=== PATIENT | female | born 1945 | race Caucasian/White ===

== ENCOUNTER 2018-03-10 14:38 | Inpatient (IN) ==
[2018-03-10] MEDS ORDERED: PHENERGAN PO ONE (14:55)
[2018-03-10] MEDS ORDERED: NS 1,000 ML ONE (14:57)
[2018-03-10] MEDS ORDERED: NS 1,000 ML IV ONE ×2 (14:57→16:18)
[2018-03-10] MEDS ORDERED: SODIUM CHLORIDE 0.9% INJ ONE (15:08)
[2018-03-10] MEDS ORDERED: PHENERGAN IV ONE (15:08)
[2018-03-10] MEDS ORDERED: DUONEB (A & A) ONE (15:18)
[2018-03-10 15:20] LABS: BE -8.8 mmoll (-3.0-3.0); BLOOD TYPE ARTERIAL; HCO3-(ACT) 17.9 mmoll (20.0-26.0); PCO2(98.6) 46 mmHg (35-45); PO2(98.6) 71 mmHg (60-100); SAMPLE BLOOD; SAO2 91.6 % (95.0-100.0); THB 13.4 g/dL (11.5-17.4); pH(98.6) 7.22 (7.35-7.45)
[2018-03-10 15:25] LABS: ALLEN TEST YES; MODALITY CANNULA
[2018-03-10 15:38] LABS: ALBUMIN 4.1 g/dL (3.5-5.0); CALCIUM 10.4 mg/dL (8.8-10.2); CREATININE 1.8 mg/dL (0.5-0.9); POTASSIUM 3.4 mmol/L (3.5-5.1); TOTAL BILIRUBIN 0.3 mg/dL (0.20-1.00)
[2018-03-10 15:47] LABS: BASO# 0.03 X1000 (0.0-0.2); BASO% 0.3 % (0.0-0.8); EOS# 0.12 X1000 (0.0-0.7); EOS% 1.4 % (0.0-10.0); HEMATOCRIT 41.7 % (37.0-47.0); HEMOGLOBIN 13.2 g/dL (12.0-16.0); IMM GRAN# 0.03 X1000 (0.0-0.04); IMM GRAN% 0.3 % (0.0-0.5); LYMPH# 4.77 X1000 (1.2-3.4); LYMPH% 54.8 % (20.5-51.1); MCH 28.8 PG (27-31); MCHC 31.7 g/dL (33-37); MONO# 0.38 X1000 (0.11-0.59); MONO% 4.4 % (1.7-9.3); MPV 9.3 FL (7.4-10.4); NEUT# 3.37 X1000 (1.4-6.5); NEUT% 38.8 % (42.2-75.2); PLT 412 X1000 (130-400); RBC 4.58 XMIL (4.2-5.4); RDW 14.1 % (11.5-14.5)
[2018-03-10 16:08] LABS: INR 0.94
[2018-03-10 16:38] LABS: BILIRUBIN URINE NEGATIVE (NEGATIVE); BLOOD URINE NEGATIVE (NEGATIVE); CLARITY SL. CLOUDY (CLEAR); COLOR YELLOW; GLUCOSE URINE NEGATIVE (NEGATIVE); KETONE URINE NEGATIVE (NEGATIVE); LEUKOCYTES URINE 1+ (NEGATIVE); NITRITE URINE POSITIVE (NEGATIVE); PROTEIN URINE 2+(100 mg/dL) mg/dL (NEGATIVE); UROBILINOGEN URINE NORMAL
[2018-03-10 16:46] LABS: URINE BACTERIA 1+ /HFP; URINE CAST NONE SEEN /LPF; URINE EPITHELIAL CELLS >10 /HPF (<10); URINE YEAST NONE SEEN /HPF
[2018-03-10 16:47] LABS: URINE CRYSTAL NONE SEEN /HPF; URINE SOURCE CATH
--- NOTE | 2018-03-10 16:56 | PROVIDER DOCUMENTATION ---
This chart was entered by Gloria Ng Scribe, acting as scribe for Hernan Duncan MD. HPI-General Adult - General Chief Complaint: Flank Pain Stated Complaint: rt side pain, vomiting Time Seen by Provider: 03/10/18 14:52 Source: family (Daughter) Allergies/Adverse Reactions: Patient Allergies Allergy/AdvReac Type Severity Reaction Status Date / Time codeine Allergy Severe NAUSEA/VOMI Verified 03/10/18 15:48 TING metronidazole [From Flagyl] Allergy Severe ANAPHYLAXIS Verified 03/10/18 15:48 Metronidazole HCl * Allergy Severe ANAPHYLAXIS Verified 03/10/18 15:48 [From Flagyl] povidone-iodine Allergy Severe HIVES Verified 03/10/18 15:48 [From Betadine] soap * [From Betadine] Allergy Severe HIVES Verified 03/10/18 15:48 doxycycline Allergy Intermediate RASH Verified 03/10/18 15:48 morphine Allergy Mild NAUSEA/VOMI Verified 03/10/18 15:48 TING Beta-Blockers Allergy Unknown ITCHING Verified 03/10/18 15:48 (Beta-Adrenergic Bloc Calcium Channel Blocking Allergy Unknown SHORTNESS Verified 03/10/18 15:48 Agent Dilt OF BREATH [Calcium Channel Blocking Agents-David] Calcium Channel Blocking Allergy Unknown SHORTNESS Verified 03/10/18 15:48 Agent... * OF BREATH [Calcium Channel Blocking Agents-Phe] Calcium Channel Blocking Allergy Unknown SHORTNESS Verified 03/10/18 15:48 Agents-Dih OF BREATH Calcium Channel Allergy Unknown SHORTNESS Verified 03/10/18 15:48 Blocking-Diary... * OF BREATH [Calcium Channel Blocking-Diarylamin] nitrofurantoin Allergy RASH Verified 03/10/18 15:49 [From Macrobid] Sulfa (Sulfonamide Allergy NAUSEA/VOMI Verified 03/10/18 15:50 Antibiotics) TING sulfamethoxazole Allergy NAUSEA/VOMI Verified 03/10/18 15:51 [From Bactrim] TING trimethoprim [From Bactrim] Allergy NAUSEA/VOMI Verified 03/10/18 15:51 TING Home Medications: Home Medication List Medication Instructions Recorded Confirmed Last Taken Type Diazepam 5 mg PO DAILY 04/08/13 03/10/18 Unknown History Esomeprazole [Nexium] 40 mg PO DAILY 04/08/13 03/10/18 Unknown History Furosemide [Lasix] 40 mg PO DAILY 04/08/13 03/10/18 Unknown History Ipratropium/Albuterol INH 1 puff INH RTQ6H 04/08/13 03/10/18 Unknown History [Combivent Respimat Inhaler] Isosorbide Mononitrate E.r. [Imdur] 90 mg PO DAILY 04/08/13 03/10/18 Unknown History Promethazine [Phenergan] 25 mg PO Q6H PRN PRN #14 tablet 04/08/13 Unknown Rx Alprazolam [Xanax] 0.25 mg PO QHS 03/10/18 03/10/18 Unknown History Diphenhydramine [Benadryl] 25 mg PO BID 03/10/18 03/10/18 Unknown History Duloxetine [Cymbalta] 30 mg PO DAILY 03/10/18 03/10/18 Unknown History Insulin Regular, Human [Novolin R] 100 unit IJ DAILY 03/10/18 03/10/18 Unknown History Lisinopril 10 mg PO DAILY 03/10/18 03/10/18 Unknown History Methocarbamol [Robaxin] 500 mg PO BID 03/10/18 03/10/18 Unknown History Metoprolol [Lopressor] 25 mg PO DAILY 03/10/18 03/10/18 Unknown History Nitroglycerin [Nitrostat] 0.4 mg SL PRN PRN 03/10/18 03/10/18 Unknown History [place]-3 Fatty Acids [Fish Oil] 500 mg PO QHS 03/10/18 03/10/18 Unknown History Polyethylene Glycol 3350 [Miralax] 17 gm PO DAILY 03/10/18 03/10/18 Unknown History Verapamil HCl [Verapamil ER] 120 mg PO BID 03/10/18 03/10/18 Unknown History - History of Present Illness -Gen Adult Nature of Presenting Problems: 72 y/o female presents to the ED with syncopal episode just prior to arrival with vomiting times 1 yesterday and increasing today. Daughter states the patient was seen here yesterday and sent home, was doing better last night, vomiting and altered mental status today, and syncopal episode outside the building just prior to arrival. Location of Pain/Injury: reports: generalized Onset/Duration: reports: 2 days ago Timing: reports: still present Associated Symptoms: reports: nausea, syncope, vomiting. denies: diarrhea, fever/chills Similar Symptoms Previously?: Yes Recently seen or treated by another doctor?: Yes (here yesterday ) Review of Systems - Adult - REVIEW OF SYSTEMS - ADULT ROS:: ROS per family Constitutional: denies: chills, fever, night sweats Eyes: reports: no symptoms reported Ears, Nose, Mouth & Throat: reports: no symptoms reported Cardiovascular: reports: no symptoms reported Respiratory: reports: no symptoms reported Gastrointestinal: reports: nausea, vomiting. denies: diarrhea Genitourinary: reports: no symptoms reported Musculoskeletal: reports: no symptoms reported Integumentary: reports: no symptoms reported Neurological: reports: syncope. denies: seizure, tremors Psychiatric: reports: no symptoms reported Endocrine: reports: no symptoms reported Hematologic/Lymphatic: reports: no symptoms reported Allergic/Immunologic: reports: no symptoms reported All Other Systems: Reviewed and Negative Past History - Adult - PAST MEDICAL HISTORY-ADULT Review of Records: reports: Old Records Reviewed, Nursing Assessment Review, Medications Reviewed Major Childhood Illnesses: reports: denies history Cardiovascular: reports: angina, CAD, HTN Respiratory: reports: sleep apnea Genitourinary: reports: kidney disease Neurological: reports: CVA (01/06), other (norberto dz) Endocrine/Immune: reports: Diabetes Other Conditions: reports: cataract/glaucoma, other (meneres dz) - PRIOR SURGERIES/PROCEDURES Surgical/Procedure History: reports: appendectomy, cholecystectomy, bowel surgery, other (renal stent, cataract removal) - IMMUNIZATION STATUS Childhood Immunizations: See Nurse Assessment Flu Vaccine: See Nurse Assessment - FAMILY HISTORY Family History: reviewed, not pertinent - SOCIAL HISTORY Smoking: non-smoker Substance Use: none/never Alcohol Use Frequency: never Living Situation: family Physical Exam-General - PHYSICAL EXAM-ADULT Initial Vital Signs Reviewed: Yes - CONSTITUTIONAL General Appearance: obese - HEAD, EARS, NOSE, MOUTH & THROAT HENMT: normocephalic/atraumatic - NECK Neck: full range of motion, supple - SKIN Integumentary: normal color, warm/dry Progress - PLAN OF CARE/RESULTS Progress/Plan/Lab Results: Vital Signs - 8 hr 03/10/18 14:45 Temperature 96.7 F L Pulse Rate 109 H Respiratory Rate 16 O2 Sat by Pulse Oximetry 93 L Result Diagrams: 03/10/18 15:05 03/10/18 15:05 - EKG 1 Time of EKG reading by physician:: 14:48 EKG Read and Signed by:: Hernan Duncan EKG Interpretation (*Must complete 3 of following elements*): Abnormal (acute STEMI/STEMI, consider right ventricular involvement in acute inferior infarct) Rate: 112 Rhythm: sinus tachycardia Comments: inferior infarct possibly acute, anterior infarct - old 2 Time of EKG reading by physician:: 15:43 EKG Read and Signed by:: Hernan Duncan EKG Interpretation (*Must complete 3 of following elements*): Abnormal ( inferior infarct age undetermined, anterolateral infarct age undetermined) Rate: 101 Rhythm: sinus tachycardia w/premature atrial complexes - CONSULTS/PCP/HOSPITALIST Notification #1 *Consult/PCP/Hospitalist*: Asher Potter Time Discussed: 15:39 Reason/Comments: multiple system failure Consult Disposition: Will see in ED Departure - Departure Date of Disposition Decision: 03/10/18 Time of Disposition Decision: 16:54 DIAGNOSIS: CRF (chronic renal failure), IHD (ischemic heart disease), Dehydration, Hypotension Disposition: ADMITTED INPATIENT 09 Certified Medical Emergency: Emergent Condition: Poor Referrals and Follow-Ups: None,PCP [Primary Care Provider] - - Critical Care Note This patient required my direct & personal management of CC.: Yes Total Time (mins): 58 Critical Care Statement: This patient required my direct personal management to treat or rule out processes, the absence of which, could potentiallly result in sudden, clinically significant life or limb threatening deterioration. Attestation - Physician/ KATHRYN Attestation Patient care was provided by Advanced Practice Provider:: No The physician spent face to face time with patient:: Yes Advanced Practice Provider documentation review:: Supervising physician onsite and consulted in the evaluation and care of this patient. The physician did have a face to face encounter with the patient. This chart was documented by the indicated scribe, (Gloria Ng Scribe) and accurately reflects the services I performed and decisions made by me, Hernan Duncan MD, as attested by the provider's signature.
--- NOTE | 2018-03-10 17:04 | Diag Imaging Result Doc PS360 ---
EXAM: CT RENAL STONE SEARCH INDICATION: belly pain TECHNIQUE: This exam was performed using automated exposure control, adjustment of mA or kV according to patient size, and/or use of iterative reconstruction technique. COMPARISON: None. FINDINGS: There is evidence of a prior cholecystectomy. The liver, spleen, pancreas, and adrenal glands are essentially unremarkable. There are no renal or ureteral stones and there is no hydronephrosis. The kidneys are grossly unremarkable, otherwise. There is a Muniz catheter in the urinary bladder and the bladder is nondistended. The reproductive tract is grossly unremarkable as imaged. There is abundant stool in the colon and rectum suggesting possible constipation. The remainder of the GI tract is essentially unremarkable. No focal inflammatory changes, free abdominal gas, or free fluid is identified. There is aortoiliac atherosclerotic calcification. The bony structures are intact. IMPRESSION: Possible constipation. No definite acute pathology, otherwise. Electronically signed by Hussein Weber 03/10/2018 5:02 PM
[2018-03-10] MEDS: ZOSYN 3.375 GM in NS 50 ML IV SCH ×2 (17:10→23:20)
--- NOTE | 2018-03-10 17:20 | Diag Imaging Result Doc PS360 ---
EXAM: CHEST-1 VIEW INDICATION: positive sepsis TECHNIQUE: One view COMPARISON: 03/09/2018 FINDINGS: The lungs are grossly clear. There is no discrete pleural fluid collection or pneumothorax. The cardiomediastinal silhouette and central vasculature are grossly unremarkable. IMPRESSION: No evidence of acute pathology by plain radiograph. Electronically signed by Hussein Weber 03/10/2018 5:18 PM
[2018-03-10] MEDS ORDERED: TYLENOL PO PRN (18:22)
[2018-03-10] MEDS ORDERED: ZOFRAN IV PRN (18:22)
[2018-03-10] MEDS ORDERED: NS 1,000 ML IV SCH (18:22)
--- NOTE | 2018-03-10 19:54 | HISTORY AND PHYSICAL ---
PRIMARY CARE PHYSICIAN: Dr. Christianson. CHIEF COMPLAINT: Altered mental status, syncopal episode prior to arrival and vomiting. HISTORY OF PRESENTING ILLNESS: This is a 72-year-old female who presents to [facility] ER with complaints of altered mental status, daughter states as they were coming into the emergency room, she had a syncopal episode, had vomiting yesterday and today was also seen in the emergency room yesterday for the same complaints and was discharged home. Her workup in the emergency room on arrival showed a blood pressure of 112/57, currently it has dropped to 83/43, she saturating 93% on 3 L. Laboratory data was fairly unremarkable except she did have elevation in her plasma lactate at 6. She has underlying chronic kidney disease with a creatinine of 1.8 which is actually better than her previous baseline of 2 but she is being admitted for further evaluation and treatment. PAST MEDICAL HISTORY: Coronary artery disease, status post PCI, sleep apnea, asthma, diabetes type 2, right humeral fracture status post a fall, hypertension, chronic kidney disease, CVA and Meniere's. PAST SURGICAL HISTORY: Of a cholecystectomy, appendectomy, bowel surgery and a cataract removal. FAMILY HISTORY: Coronary artery disease. SOCIAL HISTORY: She currently lives with family. Denies any tobacco, alcohol or illicit drug use. ALLERGIES: To codeine, Flagyl, Betadine, doxycycline, morphine, beta blockers, calcium channel blockers, sulfa. HOME MEDICATIONS: We will obtain a current list and restart as appropriate, after reviewing will place an order for nursing to update and confirm home medications. LABORATORY DATA: Showed a white blood cell count of 8.70, hemoglobin 13.2, hematocrit 41.7, platelets 412,000, PT and INR of 13 and 0.94. ABG with a pH of 7.22, pCO2 of 46, PO2 71, bicarb 17.9, lactate was 6.60 on 2 L via nasal cannula, sodium 138, potassium 3.4, chloride 97, CO2 20, BUN of 36, creatinine 1.8, glucose 218. Cardiac enzyme was negative, plasma lactate of 6. She has a chest x-ray pending and a CT renal stone search pending. REVIEW OF SYSTEMS: Unable to obtain from patient due to her altered mental status but the daughter states she has had increased weakness, nausea, vomiting, and that she did have a syncopal episode prior to coming into the emergency room today. The daughter states that she has complained of some right lower quadrant abdominal pain and was recently been treated for a urinary tract infection. Her UA is pending at this time. PHYSICAL EXAMINATION: On arrival she had a temperature of 96.7 degrees, pulse 109, respirations 16, blood pressure 112/57, saturating 93% on 3 L. GENERAL: This is a 72-year-old female sitting up in the bed, pale in color, confusion noted. HEENT: Normocephalic and atraumatic. Normal ENT inspection. Oropharynx and nares are clear. Pupils are equal, round, reactive to light and accommodation. Extraocular movements are intact. NECK: Normal inspection, normal range of motion. LUNGS: Clear to auscultation but she had very shallow respiration and accessory muscle use was noted. O2 via nasal cannula currently in use. HEART: With regular rate and rhythm. No murmurs, rubs, or gallops. ABDOMEN: Soft, nontender, nondistended. Bowel sounds are present x4 quadrants. MUSCULOSKELETAL: Unable to assess at this time. NEUROLOGICAL: Unable to assess at this time. ASSESSMENT: 1. Altered mental status with metabolic encephalopathy. 2. Syncope. 3. Hypotension. Would like to give a diagnosis of sepsis cause it certainly appears that she is moving in that direction but I do not have all of her lab results back to support that cause I do not have a source of infection at this time because I have a UA pending and a CT of the renal and a chest x-ray pending at this time. PLAN: She is being admitted to the medical unit at [facility], placed on O2 per protocol, will do serial plasma lactate level, will review the CT renal stone search and the 1 view chest x-ray when those results come available, will do a carotid ultrasound and echocardiogram in the morning, place on a diabetic diet, have nursing again to update and confirm home medications, we are going give her another liter bolus of fluids and then place her on normal saline at 125 mL an hour, Zofran 4 mg IV q.4 p.r.n., Tylenol 650 p.o. p.r.n., recheck a CBC, BMP in the a.m. Dictated by NONI Gandhi for Randy Potter MD cc: NONI Gandhi MD
--- NOTE | 2018-03-10 20:05 | HISTORY AND PHYSICAL ---
ADDENDUM: The patient was seen by me personally and I fully agree with the assessment and plan of my nurse practitioner Lisette Pompa. After seeing the patient [id number], I believe she has sepsis with metabolic acidosis and the likely source is urinary tract. She does have 10 to 20 WBCs per high-power field on urinalysis and therefore urine culture along with blood cultures have been obtained. She has been started on Zosyn intravenously, which will be continued. She has history of coronary artery disease, chronic kidney disease at stage 3 with baseline creatinine levels of about 1.7, type 2 diabetes mellitus and COPD along with hypertension. Her blood pressure has been running low because of sepsis and therefore, I have discontinued/held all her blood pressure lowering medications including lisinopril, isosorbide mononitrate, metoprolol and nitroglycerin patch. She has also been taking verapamil, which will be held as well. She has a history of stage 3 chronic kidney disease and her creatinine levels are near baseline but I am going to hold her furosemide for now and give her some fluid resuscitation because of her low blood pressure. I discussed the case in detail with her daughter who is very well informed about her mother's condition. Further recommendations will be given as per outcome of these measures. cc: Randy Potter MD
[2018-03-10] MEDS ORDERED: CALMOSEPTINE OINTMENT TOP PRN (20:48)
[2018-03-10] MEDS: DUONEB (A & A) INH SCH (22:05)
[2018-03-10 22:53] LABS: BASO# 0.01 X1000 (0.0-0.2); BASO% 0.1 % (0.0-0.8); EOS# 0.01 X1000 (0.0-0.7); EOS% 0.1 % (0.0-10.0); HEMATOCRIT 41.5 % (37.0-47.0); HEMOGLOBIN 12.8 g/dL (12.0-16.0); IMM GRAN# 0.05 X1000 (0.0-0.04); IMM GRAN% 0.3 % (0.0-0.5); LYMPH# 0.64 X1000 (1.2-3.4); LYMPH% 3.4 % (20.5-51.1); MCH 28.6 PG (27-31); MCHC 30.8 g/dL (33-37); MCV 92.6 FL (81-99); MONO# 0.92 X1000 (0.11-0.59); MONO% 4.9 % (1.7-9.3); MPV 9.1 FL (7.4-10.4); NEUT# 17.07 X1000 (1.4-6.5); NEUT% 91.2 % (42.2-75.2); PLT 271 X1000 (130-400); RBC 4.48 XMIL (4.2-5.4)
[2018-03-10 22:56] LABS: OCCULT BLOOD 1 POSITIVE (NEGATIVE)
[2018-03-10 23:35] LABS: BANDS 7 % (0-1); EOS 1 % (1-10); LYMPHS 4 % (21-51); MONO 5 % (1-9); SEGS 80 % (42-75)
[2018-03-11] MEDS ORDERED: BENADRYL IV ONE (02:39)
[2018-03-11] MEDS ORDERED: SODIUM CHLORIDE 0.9% INJ PRN (02:39)
[2018-03-11] MEDS: DUONEB (A & A) INH SCH ×2 (03:30→10:43)
[2018-03-11] MEDS: PHENERGAN IV PRN ×2 (03:43→19:30)
[2018-03-11] MEDS: NS 1,000 ML IV SCH ×4 (03:53→20:26)
[2018-03-11] MEDS: ZOSYN 3.375 GM in NS 50 ML IV SCH (04:05)
[2018-03-11 05:51] LABS: BE -5.1 mmoll (-3.0-3.0); BLOOD TYPE ARTERIAL; HCO3-(ACT) 20.8 mmoll (20.0-26.0); METHB 1.3 % (0.0-1.5); O2(CT) 16.2 mL/dL (15.0-23.0); O2HB 91.8 % (95.0-99.0); PCO2(98.6) 29 mmHg (35-45); PO2(98.6) 72 mmHg (60-100); SAMPLE BLOOD; SAO2 93.6 % (95.0-100.0); THB 12.5 g/dL (11.5-17.4); pH(98.6) 7.41 (7.35-7.45)
[2018-03-11 05:53] LABS: ALLEN TEST YES; MODALITY CANNULA
[2018-03-11] MEDS: HUMALOG DOSE (PARKWAY) SUBQ SCH ×4 (06:36→21:46)
[2018-03-11] MEDS ORDERED: HUMALOG (PARKWAY) SUBQ SCH (07:00)
[2018-03-11 07:53] LABS: CALCIUM 8.9 mg/dL (8.8-10.2); CREATININE 1.9 mg/dL (0.5-0.9); POTASSIUM 4.3 mmol/L (3.5-5.1)
[2018-03-11 08:43] LABS: BASO# 0.03 X1000 (0.0-0.2); BASO% 0.1 % (0.0-0.8); EOS# 0.01 X1000 (0.0-0.7); HEMATOCRIT 37.6 % (37.0-47.0); HEMOGLOBIN 12.7 g/dL (12.0-16.0); IMM GRAN# 0.22 X1000 (0.0-0.04); IMM GRAN% 0.8 % (0.0-0.5); LYMPH# 1.27 X1000 (1.2-3.4); LYMPH% 4.5 % (20.5-51.1); MCH 29.5 PG (27-31); MCHC 33.8 g/dL (33-37); MCV 87.2 FL (81-99); MONO# 1.07 X1000 (0.11-0.59); MONO% 3.8 % (1.7-9.3); MPV 9.1 FL (7.4-10.4); NEUT# 25.44 X1000 (1.4-6.5); NEUT% 90.8 % (42.2-75.2); PLT 263 X1000 (130-400); RBC 4.31 XMIL (4.2-5.4); RDW 13.9 % (11.5-14.5); WBC 28.04 X1000 (4.8-10.8)
--- NOTE | 2018-03-11 08:47 | PROGRESS NOTE ---
DATE: 03/11/2018 SUBJECTIVE: The patient is kind of having fatigue and is not able to communicate properly. She has her daughter at the bedside, who is giving me most of the history. Daughter complains that the patient had an episode of bloody diarrhea last night and since then, she is having bright red blood per rectum since then with the last episode at about 6:30 a.m. this morning. OBJECTIVE: Vital Signs: Temperature 97.7 degrees, pulse 108 per minute, respiratory rate 18 per minute, blood pressure 162/66, pulse oximetry 100% on 3 L of oxygen via nasal cannula. General: The patient is awake but appears to be somewhat disoriented. Cardiovascular System: First and second heart sounds are audible with regular tachycardia. Respiratory System: Bilateral lung air entry is moderately decreased but there are no rales or rhonchi present on auscultation. Gastrointestinal System: Abdomen is soft and nondistended. It is nontender on palpation and normal bowel sounds are present. Diagnostic Data: CBC from last night showed WBC count of 18.70, hemoglobin 12.8, and hematocrit 41.5, with a platelet count of 271,000. CBC this morning is pending at the time of this dictation. Chemistry done this morning shows a BUN of 41 and creatinine 1.9, with glucose level of 285. In comparison, her BUN and creatinine were 36 and 1.8 respectively yesterday. IMPRESSION: 1. Rectal bleeding with the possibility of colitis. 2. Metabolic acidosis and sepsis with urinary tract infection. 3. Acute kidney injury on stage 3 chronic kidney disease with baseline creatinine levels of approximately 1.7. 4. Type 2 diabetes mellitus. 5. Coronary artery disease. 6. Chronic obstructive pulmonary disease. 7. Hypertension. PLAN: The patient will continue to have fluid resuscitation and continue with Zosyn intravenously. Although it appears a lower GI bleed, I am going to switch her esomeprazole to IV pantoprazole 40 mg q.12 hours. Would also obtain a GI consultation and transfer her to [facility] for multi-speciality care. We will continue with routine care of type 2 diabetes and coronary artery disease, along with COPD and hypertension. I have therefore restarted her nitroglycerin, metoprolol, lisinopril, and Imdur. I have kept her on a full liquid diet, which will be continued. Further recommendations will be given as per hospital course. cc: Randy Potter MD
[2018-03-11] MEDS ORDERED: CYMBALTA PO SCH ×2 (09:00→21:00)
[2018-03-11] MEDS ORDERED: IMDUR PO SCH (09:00)
[2018-03-11] MEDS ORDERED: NEXIUM PO SCH (09:00)
[2018-03-11 09:52] LABS: BANDS 6 % (0-1); LYMPHS 5 % (21-51); MONO 2 % (1-9); SEGS 87 % (42-75)
[2018-03-11] MEDS: MIRALAX PO SCH (10:45)
[2018-03-11] MEDS: PRINIVIL PO SCH (10:59)
[2018-03-11] MEDS: PROTONIX IV SCH ×2 (10:59→21:28)
[2018-03-11] MEDS: SODIUM CHLORIDE 0.9% INJ SCH ×2 (10:59→21:31)
[2018-03-11] MEDS: LOPRESSOR PO SCH (11:00)
[2018-03-11] MEDS: NITROGLYCERIN 0.1MG/HR PATCH TD SCH (11:00)
--- NOTE | 2018-03-11 13:25 | Extremity Venous Study ---
EXAM: Carotid Ultrasound HISTORY: Syncope TECHNIQUE: Carotid Doppler ultrasound COMPARISON: None. FINDINGS: Right: There is normal flow in the proximal common carotid artery. There is a moderate amount of calcified plaque distally which extends into the bulb. The peak systolic velocity in the proximal internal carotid artery is 326 cm/s. The ICA/CCA ratio is 4.2. There is antegrade flow in vertebral artery. Left: There is normal flow in the common carotid artery with a small amount of plaque distally extending into the bulb. The peak systolic velocity in the internal carotid artery is 67 cm/s. The ICA/CC ratio 0.9. There is antegrade flow. IMPRESSION: 1.Critical stenosis within the proximal right internal carotid artery of between 80 and 99% 2.Mild stenosis in the proximal left internal carotid artery of less than 40% Electronically signed by Ray Avelar 03/11/2018 1:23 PM
--- NOTE | 2018-03-11 13:50 | EKG Report ---
Test Performed on : 03/10/2018 3:43:04 PM Test Reason : ER Blood Pressure : / mmHG Vent. Rate : 101 BPM Atrial Rate : 101 BPM P-R Int : 172 ms QRS Dur : 104 ms QT Int : 382 ms P-R-T Axes : 044 016 -74 degrees QTc Int : 495 ms Sinus tachycardia. with premature atrial complexes. Inferior infarct (cited on or before 09-MAR-2018) Anterolateral infarct (cited on or before 09-MAR-2018) Abnormal ECG When compared with ECG of 10-MAR-2018 14:48, (Unconfirmed) Serial changes of evolving Anterior infarct present Serial changes of evolving Anterolateral infarct present Serial changes of evolving Inferior infarct present Unconfirmed Result
--- NOTE | 2018-03-11 13:50 | EKG Report ---
Test Performed on : 03/10/2018 2:48:56 PM Test Reason : ER Blood Pressure : / mmHG Vent. Rate : 112 BPM Atrial Rate : 112 BPM P-R Int : 144 ms QRS Dur : 092 ms QT Int : 366 ms P-R-T Axes : 022 008 055 degrees QTc Int : 499 ms Sinus tachycardia. with premature supraventricular complexes. Inferior infarct (cited on or before 09-MAR-2018) Anterior infarct (cited on or before 09-MAR-2018) ACUTE OK / STEMI Consider right ventricular involvement in acute inferior infarct Abnormal ECG When compared with ECG of 10-MAR-2018 14:48, (Unconfirmed) premature supraventricular complexes. are now present Unconfirmed Result
--- NOTE | 2018-03-11 13:52 | EKG Report ---
Test Performed on : 03/10/2018 2:46:46 PM Test Reason : ER Blood Pressure : / mmHG Vent. Rate : 119 BPM Atrial Rate : 119 BPM P-R Int : 150 ms QRS Dur : 088 ms QT Int : 384 ms P-R-T Axes : 047 008 057 degrees QTc Int : 540 ms Sinus tachycardia. with occasional and consecutive premature ventricular complexes. and fusion comple xes Inferior infarct (cited on or before 09-MAR-2018) Anterior infarct (cited on or before 09-MAR-2018) Prolonged QT ACUTE NM / STEMI Consider right ventricular involvement in acute inferior infarct Abnormal ECG When compared with ECG of 09-MAR-2018 12:32, (Unconfirmed) fusion complexes are now present premature ventricular complexes. are now present Vent. rate has increased BY 40 BPM Unconfirmed Result
--- NOTE | 2018-03-11 14:01 | ECHO REPORT ---
ORDER DATE: 03/11/2018 2D ECHOCARDIOGRAM: FINDINGS: 1. Technically difficult study. Poor acoustic window. Measurements cannot be accurately commented on. 2. Aortic valve leaflets appear mildly sclerotic, not well-visualized. 3. Pulmonic valve not well-visualized. 4. Mitral valve is normal. Tricuspid valve is normal. 5. By Doppler studies, there is no aortic stenosis or regurgitation. 6. There is mild mitral regurgitation. 7. Mild tricuspid regurgitation. Peak velocity across the tricuspid valve was 2.6 m/sec. Pulmonary systolic pressure of 38 mmHg. 8. Definity was used to assess left ventricular systolic function. Normal left ventricular cavity size. Estimated ejection fraction of 40%. However, with Optison, still cannot comment on the systolic function accurately. There appears to be some anteroseptal hypokinesis as well. Would recommend MUGA scan for accurately assessing systolic function. 9. There is no pericardial effusion. cc: MD Lisette Sharif CRNP Adnan A. Seljuki, MD
[2018-03-11] MEDS ORDERED: MERREM 1 GM in NS 50 ML IV SCH (16:38)
[2018-03-11] MEDS: NITROGLYCERIN SL PRN ×3 (20:17→21:21)
[2018-03-11] MEDS: ZYVOX 600 MG/D5W 600 MG/300 ML IVPB IV SCH (20:44)
[2018-03-11] MEDS: IMDUR PO SCH (21:29)
[2018-03-11] MEDS: XANAX PO SCH (21:30)
[2018-03-11] MEDS: AZACTAM 1 GM in NS 50 ML IV SCH (23:24)
[2018-03-12] MEDS: NITROGLYCERIN SL PRN ×2 (05:03→06:03)
--- NOTE | 2018-03-12 06:01 | INFECTIOUS DISEASE CONSULT REP ---
DATE: 03/12/2018 CONCLUSION: The patient is admitted to the hospital with an altered mental status and syncope prior to arrival. Also, the patient has been having diarrhea, hematochezia, and vomiting. She does have a urinary tract infection with a gram-negative matt and that could account for many of the symptoms. Her chest x-ray is clear, which would make pneumonia unlikely. The patient is having loose stools, along with blood in them. She may have an enteric pathogen such as Clostridium difficile, or salmonella, or shigella. The patient has multiple drug allergies including antibiotics. RECOMMENDATIONS: I have started the patient on a combination of Zyvox and aztreonam. Thus far, she appears to be able to tolerate them well. DISCUSSION: The patient is unable provide a history. The patient's daughter is present. The patient had an altered mental status, a syncopal episode, and vomiting. According to the daughter, the patient was passing gross blood with her stools and the stools were loose. The patient's CBC shows a white count of 28,040, hemoglobin 12.7, and platelet count 263,000. Blood gases show a pH of 7.41, a PO2 of 72, and a pCO2 of 29. The creatinine is 1.9. GFR is 26. Alkaline phosphatase is 144. Urinalysis showed white cells and bacteria. The urine culture is growing a gram-negative matt. Stool culture and blood cultures are pending. Stool for Clostridium difficile toxin is negative. CT scan of the abdomen showed constipation. Chest x-ray shows clear lung briggs. REVIEW OF SYSTEMS: Unable to be obtained. MEDICAL DISEASES: Positive for coronary artery disease, sleep apnea, asthma, diabetes mellitus, right humeral fracture after a fall, hypertension, chronic kidney disease, stroke, and Meniere's disease. PAST SURGICAL HISTORY: Positive for cholecystectomy, appendectomy, and bowel surgery - the exact reason is uncertain. The patient also had cataract surgery. FAMILY HISTORY: Positive for coronary artery disease. SOCIAL HISTORY: The patient lives with her family members. She does not smoke cigarettes, drink alcoholic beverages, or abuse drugs. ALLERGIES: The patient has drug allergies to the following medications: Codeine, Flagyl, Betadine soap, doxycycline, morphine, beta blockers, Zosyn, sulfa, Septra, and meropenem. HOME MEDICATIONS: Include the following: Xanax, Cymbalta, Nexium, Lasix, insulin, Combivent, Imdur, lisinopril, Robaxin, Lopressor, nitroglycerin, Phenergan, and verapamil. PHYSICAL EXAMINATION: Vital Signs: Temperature is 98.1 degrees, pulse 128, respirations 20, blood pressure 145/79. The patient is 5 feet tall, weighs 183 pounds. General: This is an obese, elderly female. She is lethargic. She did not look like she was in any acute distress. Head, Eyes, Ears, Nose, and Throat: She could hear my spoken words. She could see near objects.. She does not have any white patches on her tongue. Neck: No stiffness. Lungs: Clear to auscultation. Cardiovascular: Heart rate is regular. Abdomen and Flanks: Not tender and they are soft. Neurologic: The patient is lethargic. She was arousable. She could move the extremities. There is no tremor. Integument: No rash noted. Thank you for the consult. cc: MD Randy Almendarez MD
[2018-03-12] MEDS: HUMALOG DOSE (PARKWAY) SUBQ SCH ×2 (06:28→13:20)
[2018-03-12] MEDS: AZACTAM 1 GM in NS 50 ML IV SCH ×3 (06:28→23:05)
[2018-03-12] MEDS: DUONEB (A & A) INH SCH ×3 (06:34→09:50)
[2018-03-12 08:14] LABS: BASO# 0.02 X1000 (0.0-0.2); BASO% 0.1 % (0.0-0.8); EOS# 0.02 X1000 (0.0-0.7); EOS% 0.1 % (0.0-10.0); HEMATOCRIT 36.7 % (37.0-47.0); IMM GRAN# 0.14 X1000 (0.0-0.04); IMM GRAN% 0.5 % (0.0-0.5); LYMPH# 1.14 X1000 (1.2-3.4); LYMPH% 4.4 % (20.5-51.1); MCHC 32.7 g/dL (33-37); MCV 88.6 FL (81-99); MONO# 0.93 X1000 (0.11-0.59); MONO% 3.6 % (1.7-9.3); MPV 9.7 FL (7.4-10.4); NEUT# 23.75 X1000 (1.4-6.5); NEUT% 91.3 % (42.2-75.2); PLT 247 X1000 (130-400); RBC 4.14 XMIL (4.2-5.4); RDW 14.3 % (11.5-14.5)
[2018-03-12 08:30] LABS: CALCIUM 8.9 mg/dL (8.8-10.2); CREATININE 1.3 mg/dL (0.5-0.9); POTASSIUM 3.9 mmol/L (3.5-5.1)
--- NOTE | 2018-03-12 08:32 | Diag Imaging Result Doc PS360 ---
EXAM: ABDOMEN FLAT/UPRIGHT HISTORY: Blood in stools, elevated WBC TECHNIQUE: Flat and upright, two views COMPARISON: 02/12/2014 FINDINGS: Nonspecific bowel gas pattern. There is stool in the proximal colon. No organomegaly. There are multiple surgical clips overlying the right pelvis. Small left pelvic phlebolith. IMPRESSION: No acute abnormality identified Electronically signed by Ray Avelar 03/12/2018 8:29 AM
[2018-03-12 08:35] LABS: BANDS 16 % (0-1); LYMPHS 4 % (21-51); SEGS 80 % (42-75)
[2018-03-12] MEDS: MIRALAX PO SCH (09:07)
[2018-03-12] MEDS: NITROGLYCERIN 0.1MG/HR PATCH TD SCH (09:07)
[2018-03-12] MEDS: NS 1,000 ML IV SCH (09:07)
[2018-03-12] MEDS: ZYVOX 600 MG/D5W 600 MG/300 ML IVPB IV SCH ×2 (09:08→23:05)
[2018-03-12] MEDS: PRINIVIL PO SCH (09:12)
[2018-03-12] MEDS: PROTONIX IV SCH ×2 (09:12→23:04)
[2018-03-12] MEDS: LOPRESSOR PO SCH (09:14)
[2018-03-12] MEDS ORDERED: LASIX PO SCH (09:15)
[2018-03-12] MEDS: NITROGLYCERIN 0.4 MG/HR PATCH TD SCH (10:23)
--- NOTE | 2018-03-12 11:50 | GASTROENTEROLOGY CONSULTATION ---
DATE: 03/12/2018 REASON FOR CONSULTATION: Rectal bleeding. HISTORY OF PRESENT ILLNESS: Ms. Avila is a 72-year-old woman with a past medical history significant for coronary artery disease, recent CVA in December of 2017, chronic kidney disease, COPD, insulin-dependent diabetes, and history of colonic polyps, who was initially admitted to [facility] on March 10 with altered mental status and after having a syncopal episode. On presentation she was found to have hypotension and increased O2 requirement. She was diagnosis with sepsis likely related to urinary tract infection. Per daughter at bedside, patient developed diarrhea initially and progressive rectal bleeding while in the hospital with bright red blood per rectum and minimal clots. She denies any melenic stools. No recent history of blood thinners given her recent hemorrhagic stroke in December. No NSAIDs. The patient denies any abdominal pain, vomiting, hematemesis, or shortness of breath. PAST MEDICAL HISTORY: CKD, CAD, sleep apnea, COPD, insulin-dependent diabetes, hypertension, recent CVA in December of 2017. PAST SURGERY HISTORY: Cholecystectomy, appendectomy, bowel surgery, cataract surgery. FAMILY HISTORY: Reviewed and noncontributory. SOCIAL HISTORY: No smoking, alcohol, or drug use. CURRENT MEDICATIONS: Phenergan, normal saline, pantoprazole IV b.i.d., lisinopril, metoprolol, nitroglycerin, acetaminophen, Xanax, aztreonam, sliding-scale insulin, linezolid. ALLERGIES: Codeine, Flagyl, Betadine, doxycycline, morphine, calcium channel blockers, sulfa. REVIEW OF SYSTEMS: As per HPI. Otherwise, 12 point review of systems negative. PHYSICAL EXAMINATION: Vital Signs: Temperature 98.1 degrees, heart rate of 131, blood pressure 159/92, oxygen saturation 91% on 3 L nasal cannula. General: Awake, alert, elderly woman in no acute distress. HEENT: Anicteric. Extraocular motor intact. Moist mucous membranes. Neck: No JVD. No lymphadenopathy. Chest: Regular rate and rhythm. No murmurs, rubs, or gallops. Lungs: Decreased breath sounds and inspiratory effort. No wheezing, crackles, or rhonchi. Abdomen: Obese, soft, nontender, nondistended. Normoactive bowel sounds. No rebound or guarding. Extremities: Lower extremities, no edema, cyanosis, or clubbing. Warm and well perfused. Neurologic: Awake, alert, mild confusion. Responses to commands appropriately, intermittently to questions. Rectum: There is some minimal bright red blood per rectum, very scant. No obvious clots. No evidence of melena perirectally. LABS: White count of 26.0, hemoglobin of 12.0, which is stable during this hospitalization, platelets of 247,000, MCV of 88.6. INR of 0.94. Sodium 137, potassium 3.8, chloride of 102, bicarb of 19, BUN of 25, creatinine of 1.3, glucose of 221. LFTs from 03/10 show AST of 33, alkaline phosphatase of 44. Plasma lactate on March 10 was 9.6. UA with positive nitrates, white blood cell count, and protein. C. difficile negative. Hemoccult positive. Chest x-ray on March 10 showed no acute abnormalities. Renal CT on March 10 shows some fecal loading, but no acute process. KUB from March 12 shows no acute process. ASSESSMENT AND PLAN: Ms. Fabienne Avila is a 72-year-old woman with multiple medical problems who presented initially with sepsis in the setting of probable urinary tract infection, currently on broad-spectrum antibiotics, who was also noted to have rectal bleeding in the setting of recent diarrhea . Differential includes bleeding hemorrhoids or diverticular bleed, although I would expect a more significant drop in her hemoglobin if this was indeed diverticular in origin. She has a history of colonic polyps and is up-to-date with surveillance colonoscopy. This is unlikely upper GI bleeding, again the bright red blood per rectum seen on exam. At this time I would like to hold off on any endoscopic interventions as the vast majority of lower GI bleeding stops spontaneously and does not require endoscopic intervention. Will reconsider endoscopic evaluation if the patient has a significant hemoglobin drop or develops worsening lower GI bleeding. 1. Rectal bleeding. Trend hemoglobin daily. Transfuse to maintain a hemoglobin between 7 and 8 or if the patient is unstable from active overt bleeding. Maintain IV access. Hold blood thinners and subcutaneous heparin or Lovenox. Recommend TEDs and SCDs for DVT prophylaxis. Continue GI prophylaxis with pantoprazole IV b.i.d. 2. Sepsis, suspect urinary in origin. Urine culture is growing E. coli; currently on broad- spectrum antibiotics. Will defer to primary team as far as antibiotic regimen. 3. Leukocytosis. Likely from underlying infection. 4. History of colonic polyps. The patient is up-to-date with screening surveillance colonoscopy. 5. Metabolic acidosis. Again, likely in the setting of sepsis. Recommend fluid resuscitation and trending chemistries. 6. Chronic kidney disease. Creatinine is at baseline. 7. Coronary artery disease, history of recent stroke. Holding any blood thinners at this time given her rectal bleeding and recent stroke. Thank you for this consult. Please call with any questions or concerns. We will follow with you.
[2018-03-12] MEDS ORDERED: ISOPTIN PO ONE (13:45)
[2018-03-12] MEDS ORDERED: HUMULIN N SUBQ ONE (13:57)
--- NOTE | 2018-03-12 14:31 | Diag Imaging Result Doc PS360 ---
EXAM: CHEST-PORTABLE 03/12/2018 HISTORY: pneumonia TECHNIQUE: AP portable at 1419 COMMENT: There is some ill-defined opacity in the lung bases which was not the case on 03/10/2018. The heart size is within normal limits. IMPRESSION: Pulmonary edema versus pneumonia. Electronically signed by Jorge Montes 03/12/2018 2:29 PM
--- NOTE | 2018-03-12 14:32 | EKG Report ---
Test Performed on : 03/12/2018 2:12:50 PM Test Reason : cp Blood Pressure : / mmHG Vent. Rate : 115 BPM Atrial Rate : 115 BPM P-R Int : 144 ms QRS Dur : 086 ms QT Int : 338 ms P-R-T Axes : 041 022 110 degrees QTc Int : 467 ms Sinus tachycardia. Low voltage QRS Possible Inferior infarct (cited on or before 09-MAR-2018) Cannot rule out Anterior infarct (cited on or before 09-MAR-2018) Abnormal ECG When compared with ECG of 12-MAR-2018 14:12, (Unconfirmed) Sinus rhythm. has replaced Junctional rhythm. Confirmed by Tr ESPINOZA, Steven Hough ([id number]) on 03/12/2018 6:04:32 PM
--- NOTE | 2018-03-12 15:19 | PROGRESS NOTE ---
DATE: 03/12/2018 SUBJECTIVE: She looks like she is working a little harder to breathe. She is a complicated patient and her daughter takes mosque care of her. She is very focused on specific details, knows her history well. She is just very focused on individual pinpoint issues about her mother. We try to go through every system and come up with an agreeable plan for her and her mother. OBJECTIVE: Vital Signs: Blood pressure 136/63, heart rate 112, respiratory rate 18, temperature 98.7, 94% on 2 L. Cardiovascular: Tachy. Pulmonary: Rhonchi, wheezing. She is definitely having increasing work of breathing, accessory muscle use. Gastrointestinal: Soft, nontender, nondistended. Bowel sounds are positive. LABORATORY: Her white count is 26,000, hemoglobin and hematocrit 12 and 36, platelets 247,000. Creatinine is 1.3. PROBLEM LIST: 1. Rectal bleeding with possibility of colitis. GI is following. The daughter is very focused on she has significant bleeding, but her hemoglobin and hematocrit has dropped a little bit, but over the last 24 hours is pretty stable. GI is following and at this point we are not pursuing endoscopy, although I doubt the daughter is going to be very satisfied with that, but at the same time she is not having a brisk bleed because her hemoglobin and hematocrit is stable and her breathing probably need to be optimized before she can undergo any degree of endoscopy. 2. E coli urinary tract infection. We will continue antibiotics. She is on Zyvox and aztreonam per ID. There is possible pneumonia. We will check her chest x-ray and probably repeat another one tomorrow. 3. Colonic polyps, stable. Continue to follow. 4. Acute on chronic kidney disease. Her renal function has improved somewhat. DISPOSITION: Pending her clinical status, we will continue to follow. Disposition is pending stability, but she may take a several days away. Additional, her insulin is not completely optimized. Now, that being said, the daughter is concerned because her sugars are in the 200s, which is unusual for her, but is not life-threatening per se, but I will resume her insulin slowly. She is not eating very well and we discussed that we do not want her to bottom out. Now, reportedly 45 units twice a day. It is not listed in her home medications, though, but she says she takes 45 units. cc: Guevara Allen MD MTDD
[2018-03-12] MEDS: XOPENEX NEB INH SCH ×3 (15:31→23:30)
[2018-03-12] MEDS: HUMULIN R SUBQ SCH ×2 (17:35→23:31)
[2018-03-12] MEDS ORDERED: HUMULIN N SUBQ SCH (21:00)
[2018-03-12] MEDS: SODIUM CHLORIDE 0.9% INJ SCH (23:03)
[2018-03-12] MEDS: LASIX IV SCH (23:03)
[2018-03-12] MEDS: BENADRYL PO SCH (23:04)
[2018-03-12] MEDS: XANAX PO SCH (23:04)
[2018-03-12] MEDS: ROBAXIN PO SCH (23:04)
[2018-03-12] MEDS: IMDUR PO SCH (23:04)
[2018-03-12] MEDS: FISH OIL CONCENTRATE PO SCH (23:06)
[2018-03-13] MEDS: XOPENEX NEB INH SCH ×6 (04:19→23:15)
[2018-03-13] MEDS: AZACTAM 1 GM in NS 50 ML IV SCH ×3 (06:10→21:59)
[2018-03-13] MEDS: HUMULIN R SUBQ SCH ×5 (06:15→22:34)
[2018-03-13 08:27] LABS: BASO# 0.02 X1000 (0.0-0.2); BASO% 0.1 % (0.0-0.8); EOS# 0.05 X1000 (0.0-0.7); EOS% 0.3 % (0.0-10.0); HEMATOCRIT 31.4 % (37.0-47.0); HEMOGLOBIN 9.9 g/dL (12.0-16.0); IMM GRAN# 0.05 X1000 (0.0-0.04); IMM GRAN% 0.3 % (0.0-0.5); LYMPH# 1.69 X1000 (1.2-3.4); LYMPH% 9.3 % (20.5-51.1); MCH 28.7 PG (27-31); MCHC 31.5 g/dL (33-37); MONO% 3.3 % (1.7-9.3); MPV 9.6 FL (7.4-10.4); NEUT# 15.79 X1000 (1.4-6.5); NEUT% 86.7 % (42.2-75.2); PLT 217 X1000 (130-400); RBC 3.45 XMIL (4.2-5.4); RDW 14.3 % (11.5-14.5)
[2018-03-13 08:42] LABS: CALCIUM 8.2 mg/dL (8.8-10.2); CREATININE 1.5 mg/dL (0.5-0.9); POTASSIUM 3.4 mmol/L (3.5-5.1)
[2018-03-13] MEDS ORDERED: ISOPTIN SR PO SCH ×2 (09:00→21:00)
[2018-03-13 09:15] LABS: BANDS 4 % (0-1); LYMPHS 10 % (21-51); MONO 2 % (1-9); SEGS 84 % (42-75)
[2018-03-13] MEDS: ZYVOX 600 MG/D5W 600 MG/300 ML IVPB IV SCH ×2 (09:57→22:34)
[2018-03-13] MEDS: SODIUM CHLORIDE 0.9% INJ SCH ×2 (10:01→20:04)
[2018-03-13] MEDS: PROTONIX IV SCH ×2 (10:01→20:02)
[2018-03-13] MEDS: LASIX IV SCH ×2 (10:04→20:02)
[2018-03-13] MEDS: ROBAXIN PO SCH ×2 (10:04→20:01)
[2018-03-13] MEDS: LOPRESSOR PO SCH (10:04)
[2018-03-13] MEDS: BENADRYL PO SCH ×2 (10:05→20:01)
[2018-03-13] MEDS: MIRALAX PO SCH (10:07)
[2018-03-13] MEDS: NITROGLYCERIN 0.4 MG/HR PATCH TD SCH (10:10)
--- NOTE | 2018-03-13 11:10 | GASTROENTEROLOGY PROGRESS NOTE ---
DATE: 03/13/2018 SUBJECTIVE: No acute overnight events. Afebrile. The patient is sleeping but arousable. She denies any abdominal pain, nausea, vomiting, fevers. Some mild shortness of breath. OBJECTIVE: Vital Signs: Temperature 98.2, heart rate of 108, respiratory rate 22, blood pressure 118/51, O2 saturation 96% on 2 L nasal cannula. Generally, the patient is sleepy but arousable. No acute distress. HEENT: Anicteric. Moist mucous membranes. Neck: No JVD. No lymphadenopathy. Cardiac: Tachycardic, regular. No murmurs. Lungs: Decreased breath sounds throughout. No wheezing. Normal work of breathing. Abdomen obese, soft, nontender, nondistended. Normoactive bowel sounds. No rebound or guarding. Extremities: No clubbing, cyanosis, or edema. Neuro: Moving all extremities symmetrically. LABORATORY DATA: White count of 18.2; down from 26 yesterday. Hemoglobin of 9.9 from 12.0, platelets of 217,000, 4% bands. Sodium 137, potassium 3.4, chloride 102, bicarb 22. BUN 31, creatinine 1.5. ProBNP of 28,768. Clostridium difficile toxin negative. Chest x-ray yesterday showed pulmonary edema versus pneumonia. ASSESSMENT AND PLAN: Ms. Avila is a 72-year-old woman with multiple medical problems, who presented with urosepsis and rectal bleeding. Her hemoglobin has drifted down to 9.9 from 12.0 yesterday without overt bleeding. Her leukocytosis is improving with antibiotics. She was initiated on Lasix yesterday for pulmonary edema and has maintained a stable creatinine. 1. Rectal bleeding. Differential includes bleeding hemorrhoids, diverticular bleeding. The patient is up-to-date with surveillance colonoscopy for history of colonic polyps. Will continue to monitor hemoglobin and hematocrit. If it continues to drop or the patient develops overt bleeding, we will plan for a diagnostic colonoscopy. Otherwise, we will treat supportively with proton pump inhibitor IV twice daily. 2. Urinary tract infection. Patient remains on antibiotics with linezolid and aztreonam. 3. Leukocytosis, improving, secondary to underlying infection. 4. Pulmonary edema. Currently on Lasix as per primary team. 5. Chronic kidney disease. Creatinine is stable and at baseline. We will continue to follow. Please call with any questions or concerns. [facility]IT[facility]
[2018-03-13] MEDS ORDERED: INSULIN PEN NEEDLES ONE (13:52)
[2018-03-13] MEDS: BASAGLAR SUBQ SCH (13:54)
[2018-03-13 14:20] LABS: HEMATOCRIT 32.3 % (37.0-47.0); HEMOGLOBIN 10.1 g/dL (12.0-16.0)
--- NOTE | 2018-03-13 14:59 | PROGRESS NOTE ---
DATE: 03/13/2018 INTERVAL HISTORY: The patient has not noted any further bleeding. The patient is slightly confused, but cooperative, converses. Has had a bit of a drop in her hemoglobin and hematocrit overnight, but may be from what she has already lost previously. Discussed cardiac history. Patient states that she follows up with company accountant in [place], but is unaware of a previous diagnosis of heart failure. Review of systems: 12 point review of systems negative except as per interval history. LABS: White count 18.2, hemoglobin 9.9, hematocrit 31.4, platelets 217,000. Sodium 137, potassium 3.4, bicarb 22, BUN 31, creatinine 1.5, glucose 235 to 274. BNP 28, 000. IMAGING: Chest x-ray yesterday with ill-defined opacities at the lung bases. Likely pulmonary edema. VITALS: T-max 99.9, pulse 95, respirations 18, blood pressure 114/47, O2 sat 93 % on 2 L by nasal cannula. PHYSICAL EXAMINATION: General: No acute distress. Vitals: As above. HEENT: Normocephalic, atraumatic. Moist mucous membranes. No cervical adenopathy. Cardiovascular: Regular rate and rhythm. No murmurs, rubs or gallops noted. Pulmonary: Bibasilar crackles noted. No wheezing currently. Otherwise, clear to auscultation bilaterally. No increased work of breathing or accessory muscle use. Abdomen: Soft, nontender, nondistended. Bowel sounds positive. Extremities: Peripheral pulses intact. Trace pitting edema in bilateral lower extremities. No clubbing or cyanosis. Neurologic: Cranial nerves 2-12 grossly intact. Globally weak, but no focal deficits. Psychiatric: Relatively normal mood and affect, asleep but easily arousable. Oriented to person and place, but not time. Skin: No new rashes or lesions noted. ASSESSMENT AND PLAN: 1. Lower gastrointestinal bleed with possible colitis, GI following. The patient has not noted any further gross bleeding, but has had a bit of a drop in her hemoglobin and hematocrit from 12 and 36 to 9.9 and 31. Will repeat blood counts this afternoon and monitor. GI currently planning on deferring endoscopy, but this may change if patient's blood counts continue to drop. 2. UTI with Escherichia coli. Urine culture showing E coli sensitive to cefazolin, Zosyn and amikacin. The patient on antibiotics with aztreonam and Zyvox as per ID. Continued afebrile. Continue to monitor. Some question of pneumonia based on most recent chest x -ray, but given bibasilar crackles and markedly elevated BNP, favor CHF as below. 3. Acute versus acute on chronic systolic congestive heart failure. History of heart failure unclear at this point. Most recent echo showing mildly decreased ejection fraction at 40. BNP markedly elevated, bibasilar crackles on exam, and likely pulmonary edema on chest x-ray. Giving diuresis with Lasix 40 IV b.i.d. Continue to monitor respiratory status and will need to follow up with her regular company accountant after discharge. 4. Acute kidney injury on likely chronic kidney disease stage 3. Baseline somewhat uncertain, but creatinine on admission 1.9, now down to 1.5. Monitor kidney function closely in the setting of above diuresis. 5. DVT prophylaxis, SCDs. [facility]
[2018-03-13] MEDS: FISH OIL CONCENTRATE PO SCH (20:01)
[2018-03-13] MEDS: XANAX PO SCH (20:01)
[2018-03-13] MEDS: IMDUR PO SCH (20:01)
[2018-03-14] MEDS: XOPENEX NEB INH SCH ×6 (03:56→23:25)
--- NOTE | 2018-03-14 04:28 | INFECTIOUS DISEASE PROGRESS NO ---
DATE: 03/13/2018 PRESENT ILLNESS: Ms. Avila has an Escherichia coli urinary tract infection, which is multidrug resistant. There is also a preliminary gram-positive rods in her blood culture , but this most likely is a contaminant. There is also a possibility of pneumonia versus pulmonary edema seen on chest x-ray. MEDICATIONS: She is receiving day 2 of aztreonam 1 gram IV every 8 hours and Zyvox 600 mg IV every 12 hours. PHYSICAL EXAM: Vital Signs: Temperature is 97.8 degrees, pulse rate 88, respiratory rate 22, blood pressure 114/47, O2 saturation is 96% on 2 L nasal cannula. General: This is an elderly, obese female. She is lying in the bed, currently very drowsy and lethargic, but arousable. HEENT: Atraumatic, normocephalic. Oral mucous membranes are pink and dry. Conjunctivae are pink. Neck: Supple. Trachea is midline. Cardiovascular: Heart rate and rhythm are regular. Normal sinus rhythm on the monitor. Radial and pedal pulses are +2 bilaterally. Respiratory : Lung sounds are clear in the upper lobes; diminished in the bases. Abdomen: Soft, obese, and nontender. Bowel sounds are active. Neurologic: She is lethargic and drowsy, but arousable and follows commands. Generalized weakness is noted. There is no tremor. LABORATORY AND X-RAY: Today her white count is 18.2, hemoglobin 10.1, platelet count is 217,000. Creatinine is 1.5 GFR 34. Her pro-B natriuretic peptide is greater than 28, 000. Her urine culture has grown an Escherichia coli, which is multidrug resistant, and her blood cultures have grown 1/2 gram-positive rods which most likely is a contaminant. No imaging reports today. However, a chest x-ray done yesterday afternoon show pulmonary edema versus pneumonia with some ill-defined opacities in the lung bases. ASSESSMENT AND PLAN: Ms. Avila has an Escherichia coli urinary tract infection. There is also the possibility of pneumonia versus pulmonary edema as seen on chest x-ray. We will order a procalcitonin for in the morning. For now, we will could continue Zyvox and aztreonam as ordered. These plans have been discussed with and recommended by Dr. Chávez. COMORBIDITIES: include coronary artery disease, chronic kidney disease, diabetes mellitus, CVA, obstructive sleep apnea, asthma, and Mnire's disease. Dictated by NONI Walker for Joel Chávez MD This chart was documented by, NONI Walker and accurately reflects the services performed, treatment plan and medical decisions as attested by the providers signature Joel Chávez MD. cc: Joel Chávez MD [facility]
[2018-03-14] MEDS: AZACTAM 1 GM in NS 50 ML IV SCH ×3 (06:04→22:13)
[2018-03-14] MEDS: HUMULIN R SUBQ SCH ×4 (06:42→20:51)
[2018-03-14] MEDS: PHENERGAN IV PRN (07:06)
[2018-03-14 07:46] LABS: BASO# 0.03 X1000 (0.0-0.2); BASO% 0.2 % (0.0-0.8); EOS% 2.4 % (0.0-10.0); HEMATOCRIT 31.2 % (37.0-47.0); HEMOGLOBIN 9.7 g/dL (12.0-16.0); IMM GRAN# 0.05 X1000 (0.0-0.04); IMM GRAN% 0.4 % (0.0-0.5); LYMPH# 1.75 X1000 (1.2-3.4); LYMPH% 14.1 % (20.5-51.1); MCH 28.7 PG (27-31); MCHC 31.1 g/dL (33-37); MCV 92.3 FL (81-99); MONO# 0.64 X1000 (0.11-0.59); MONO% 5.2 % (1.7-9.3); MPV 9.4 FL (7.4-10.4); NEUT# 9.61 X1000 (1.4-6.5); NEUT% 77.7 % (42.2-75.2); PLT 233 X1000 (130-400); RBC 3.38 XMIL (4.2-5.4); RDW 14.4 % (11.5-14.5); WBC 12.38 X1000 (4.8-10.8)
[2018-03-14 08:20] LABS: CALCIUM 7.9 mg/dL (8.8-10.2); CREATININE 1.6 mg/dL (0.5-0.9); POTASSIUM 3.6 mmol/L (3.5-5.1)
[2018-03-14] MEDS: BENADRYL PO SCH ×2 (09:26→20:42)
[2018-03-14] MEDS: LASIX IV SCH ×2 (09:26→20:42)
[2018-03-14] MEDS: MIRALAX PO SCH ×2 (09:26→09:49)
[2018-03-14] MEDS: PROTONIX IV SCH ×2 (09:26→20:42)
[2018-03-14] MEDS: NITROGLYCERIN SL PRN ×2 (09:26→11:24)
[2018-03-14] MEDS: BASAGLAR SUBQ SCH (09:26)
[2018-03-14] MEDS: SODIUM CHLORIDE 0.9% INJ SCH ×2 (09:26→20:42)
[2018-03-14] MEDS: LOPRESSOR PO SCH (09:26)
[2018-03-14] MEDS: NITROGLYCERIN 0.4 MG/HR PATCH TD SCH (09:27)
[2018-03-14] MEDS: ZYVOX 600 MG/D5W 600 MG/300 ML IVPB IV SCH ×2 (09:27→22:13)
[2018-03-14] MEDS: ROBAXIN PO SCH ×2 (09:27→20:42)
--- NOTE | 2018-03-14 12:25 | PROGRESS NOTE ---
DATE: 03/14/2018 SUBJECTIVE: The patient is resting in bed. Her daughter is present at bedside. The patient has liquid stool with minimum blood. She has decreased p.o. intake. The patient's daughter is saying that the patient complained of abdominal pain after eating. OBJECTIVE: Vital Signs: Temperature 98, pulse rate of 90, respiratory rate 18, blood pressure 118/37, saturating 96% on 2 L nasal cannula. General Appearance: Obese, lying in bed, in no acute distress. HEENT: Pale conjunctivae. No icterus. Neck is supple. Abdomen is obese, soft, nondistended. No guarding. Extremities: No cyanosis, clubbing. Neurologic: She is alert, awake, and answers simple questions. LABORATORY DATA: Hemoglobin and hematocrit is 9.7 and 31.2, white count of 12.38, platelet count of 233,000. Sodium 141, potassium 3.6, chloride 103, bicarb 23, anion gap 15, BUN of 41, creatinine 1.6, glucose of 149. Calcium 7.9. Abdominal x-ray was done on 03/12/2018 which showed no abnormality. Previous imaging ultrasound of the abdomen was last done in 2013 which showed evidence of cirrhosis and no evidence of any acute disease. Renal CT was done just a few days ago which showed evidence of possible constipation. IMPRESSION AND PLAN: 1. Rectal bleeding has slowed down a lot. Hematocrit is stable. We will continue to watch for now. According to the patient's daughter, the patient has had an esophagogastroduodenoscopy/colonoscopy done in 2017 at [facility] which showed esophagitis, h pylori gastritis and hemorrhoids grade I. She was treated for H pylori. 2. Urinary tract infection. She is on antibiotics. 3. Leukocytosis. Continue being managed by Dr. Chávez. In fact, the white count is 12.3. 4. Obesity, aware. 5. Mildly elevated liver enzymes on admission with AST of 33. 6. Her last ultrasound done in 2013 showed evidence of possible cirrhosis, so we will obtain a repeat ultrasound. 7. We will put her on Carafate 1 g 6 hours and start her on Culturelle b.i.d. We will decide about the timing of esophagogastroduodenoscopy/colonoscopy based on patient' s clinical course. The above plan of care was discussed with the patient and family and all questions answered. We will also continue GI prophylaxis with PPIs. We will start her on Metamucil as well to help with regular rising her bowel movements. cc: MD Dr. Yola Alvarez
[2018-03-14] MEDS: CARAFATE LIQUID PO SCH ×2 (14:19→20:41)
--- NOTE | 2018-03-14 16:34 | Diag Imaging Result Doc PS360 ---
EXAM: US ABDOMEN-COMPLETE INDICATION: abdominal pain COMPARISON: Right upper quadrant ultrasound dated 04/16/2013 FINDINGS: There has been a prior cholecystectomy. The common bile duct is normal in diameter. The liver is grossly unremarkable. Portal venous flow is hepatopetal. The visualized pancreas is unremarkable. The mid and distal aorta are obscured by bowel gas. The remainder of the aorta and IVC are unremarkable. The spleen is unremarkable. The kidneys are grossly unremarkable. IMPRESSION: Essentially unremarkable abdominal ultrasound. Electronically signed by Hussein Weber 03/14/2018 4:32 PM
--- NOTE | 2018-03-14 18:19 | PROGRESS NOTE ---
DATE: 03/14/2018 OVERNIGHT: No acute events. Her mean arterial pressures were running low. SUBJECTIVE: She did have a bowel movement with little bit of blood today morning. However, it has slowed down. According to family at bedside, the patient has improved since presentation, though she continues to have some weakness, which is their concern. However, her mental status appears pretty much close to her baseline, according to patient's family at bedside. The patient denies any chest pain or feeling short of breath. I was also told that patient has had multiple myocardial infarctions in the past and she is taking Plavix at home; however, it is not listed in her home medication. I suggested them to bring the updated medication list to see if she is on any Plavix or not. The family could also not confirm if patient had hemorrhagic or ischemic stroke 2 months ago. According to history given by the patient's family, the last myocardial infarction patient had was more than one year ago. OBJECTIVE: Vital Signs: Temperature 97.2, pulse 75 per minute, blood pressure 120/40, saturating 100% on 2 L nasal cannula. PHYSICAL EXAMINATION: General: In general, does not appear in any acute distress. HEENT: Oral cavity is dry. Air entry bilaterally equal with inspiratory crackles bilateral bases. No wheeze or rhonchi. S1, S2 normal. No murmur, rub or gallop. Abdomen: Soft, nontender, no lower extremity edema. Neurologic: The patient has left-sided facial droop, slurring of speech. She appears alert, oriented to herself. She oftentimes has difficulty with expressive aphasia. She has right upper extremity and right lower extremity weakness with power about 3/ 5 and decreased cpa tax stent on the right hand. Sensation intact bilaterally. Input and output positive 800 mL. LABS: Suggestive of improving leukocytosis, gradually decreasing hematocrit, hemoglobin of 9.7 and platelet count of 233,000. Normal electrolytes. Chronic kidney disease stage III to stage IV. Persistent hyperglycemia. MICROBIOLOGY: No new microbiological data. So far, the stool studies have been negative. Urine culture previously was growing E coli. IMAGING: Abdomen ultrasound has detected essentially unremarkable. Previously she did have a carotid ultrasound which had suggested critical stenosis within the proximal right internal carotid artery between 80-90%. ASSESSMENT AND PLAN: 1. Lower gastrointestinal bleed with possible acute colitis. The patient previously had history of hemorrhoids, so this could also be hemorrhoidal or diverticular bleed. Currently, monitoring CBC. Continue intravenous Protonix, psyllium husk, intravenous linezolid and aztreonam. 2. Urinary tract infection with Escherichia coli, sensitive to cefazolin. Continue intravenous aztreonam and Zyvox as per ID. 3. Suspected bilateral pneumonia; however, more likely related to congestive heart failure. Continue antibiotics as mentioned above. 4. Systolic congestive heart failure, likely chronic. Continue patient on intravenous Lasix, beta blockers, metoprolol. Follow up with proBNP. I will await proper medication reconciliation to see if patient was on aspirin, Plavix and statin at home or not. Meanwhile, continue omega-3 fatty acids. 5. History of insulin-dependent diabetes mellitus with hyperglycemia. Increase insulin glargine dose and increase sliding scale insulin dose. 6. Hypotension, likely in the setting of poor p.o. intake with use of antihypertensive medication. Stop patient's isosorbide and verapamil. I will add back as tolerated. 7. Acute kidney injury on chronic kidney disease stage 3 on presentation. Appears to be at baseline at the moment. 8. 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 I will await medication reconciliation and start patient on aspirin or Plavix accordingly if her GI bleed stops. I will also consider consulting Surgery as needed. 9. DVT prophylaxis. SCDs. 10. Disposition: Patient remains inside the hospital while her GI bleed stabilizes. Plan of care was discussed with the patient and her family members at bedside. All of their questions have been answered. cc: Alex Quintanilla MD [facility]
[2018-03-14] MEDS: CULTURELLE PO SCH (20:41)
[2018-03-14] MEDS: XANAX PO SCH (20:41)
[2018-03-14] MEDS: ICAR-C PO SCH (20:41)
[2018-03-14] MEDS: FISH OIL CONCENTRATE PO SCH (20:42)
--- NOTE | 2018-03-14 23:55 | INFECTIOUS DISEASE PROGRESS NO ---
DATE: 03/14/2018 PRESENT ILLNESS: The patient has an E. coli urinary tract infection, which is multiply drug resistant. The patient had a Gram positive matt that was seen on Gram stain from the blood culture, but it never grew. I think it is a contaminant. MEDICATIONS: The patient is on the third day of aztreonam, and also Zyvox. PHYSICAL EXAMINATION: Vital Signs: Temperature is 97.2 degrees, pulse 75, respirations 18, blood pressure 120/40. General: This is an obese, elderly female. She is in no acute distress. She seems a little more alert today. Head, Eyes, Ears, Nose, and Throat: She can hear my spoken words and see near objects. She does not have any white patches on her tongue. Neck: No stiffness. Lungs: Clear to auscultation. Cardiovascular: Heart rate is regular. Abdomen: Soft and nontender. Neurologic: The patient is awake. She can move her extremities, but she is weak. LABORATORY AND X-RAY: As mentioned above, on the patient's Gram stain, Gram positive rods were seen, but the culture was negative. I think this is a contaminant, and does not require treatment. The patient's E. coli urinary tract infection is being treated with aztreonam. Tomorrow, I will go ahead and get a repeat urine culture to see if it is being treated by the aztreonam. The patient's CBC shows a white count of 12,380, hemoglobin 9.7, platelet count 233,000. Creatinine is 1.6. GFR is 32. Abdominal ultrasound showed no abnormality. ASSESSMENT AND PLAN: The patient has an Escherichia coli urinary tract infection. The plan is to continue aztreonam and tomorrow get a urine culture. As regarding the Gram positive matt, I think this is a contaminant, and does not deserve any kind of treatment with antibiotics. COMORBIDITIES: Coronary artery disease, chronic kidney disease, diabetes mellitus, stroke, obstructive sleep apnea, asthma, and Meniere's disease. cc: Joel Chávez MD
[2018-03-15] MEDS: CARAFATE LIQUID PO SCH ×4 (02:07→21:08)
[2018-03-15] MEDS: XOPENEX NEB INH SCH ×6 (03:45→23:22)
[2018-03-15] MEDS ORDERED: INSULIN PEN NEEDLES ONE (05:49)
[2018-03-15] MEDS: AZACTAM 1 GM in NS 50 ML IV SCH ×3 (06:15→21:08)
[2018-03-15] MEDS: HUMULIN R SUBQ SCH ×5 (06:16→21:09)
[2018-03-15 08:27] LABS: BASO# 0.02 X1000 (0.0-0.2); BASO% 0.2 % (0.0-0.8); EOS# 0.23 X1000 (0.0-0.7); EOS% 2.7 % (0.0-10.0); HEMATOCRIT 32.8 % (37.0-47.0); HEMOGLOBIN 10.2 g/dL (12.0-16.0); IMM GRAN# 0.06 X1000 (0.0-0.04); IMM GRAN% 0.7 % (0.0-0.5); LYMPH# 1.93 X1000 (1.2-3.4); LYMPH% 22.8 % (20.5-51.1); MCH 28.7 PG (27-31); MCHC 31.1 g/dL (33-37); MCV 92.1 FL (81-99); MONO# 0.57 X1000 (0.11-0.59); MONO% 6.7 % (1.7-9.3); MPV 9.5 FL (7.4-10.4); NEUT# 5.64 X1000 (1.4-6.5); NEUT% 66.9 % (42.2-75.2); PLT 247 X1000 (130-400); RBC 3.56 XMIL (4.2-5.4); RDW 14.4 % (11.5-14.5); WBC 8.45 X1000 (4.8-10.8)
[2018-03-15 09:04] LABS: CALCIUM 8.3 mg/dL (8.8-10.2); CREATININE 1.5 mg/dL (0.5-0.9); POTASSIUM 3.5 mmol/L (3.5-5.1)
[2018-03-15] MEDS: ZYVOX 600 MG/D5W 600 MG/300 ML IVPB IV SCH ×2 (09:37→21:08)
[2018-03-15] MEDS: PROTONIX IV SCH ×2 (09:38→21:08)
[2018-03-15] MEDS: CENTRUM SILVER PO SCH (09:38)
[2018-03-15] MEDS: BENADRYL PO SCH ×2 (09:38→21:07)
[2018-03-15] MEDS: CULTURELLE PO SCH ×2 (09:38→21:07)
[2018-03-15] MEDS: LASIX IV SCH ×2 (09:38→21:08)
[2018-03-15] MEDS: NITROGLYCERIN 0.4 MG/HR PATCH TD SCH (09:39)
[2018-03-15] MEDS: ROBAXIN PO SCH ×2 (09:39→21:07)
[2018-03-15] MEDS: ICAR-C PO SCH ×2 (09:39→21:07)
[2018-03-15] MEDS: METAMUCIL PO SCH (09:39)
[2018-03-15] MEDS: LOPRESSOR PO SCH (09:39)
[2018-03-15] MEDS: BASAGLAR SUBQ SCH (09:40)
--- NOTE | 2018-03-15 10:54 | GASTROENTEROLOGY PROGRESS NOTE ---
DATE: 03/15/2018 SUBJECTIVE: No acute overnight events. The patient had scant amount of rectal bleeding yesterday, that has continued to taper off, none this morning. Patient denies any complaints this morning. Feels well. She is mildly confused, but answers questions appropriately. She denies any abdominal pain, nausea, vomiting, or fevers. OBJECTIVE: Vital signs: Temperature 99.2 degrees, heart rate 105, respiratory rate 21, blood pressure 152/98. She is saturating 96% on 2 L nasal cannula. General: She is awake, alert, oriented, in no acute distress. HEENT: Sclerae anicteric. Moist mucous membranes. Neck: No JVD. No lymphadenopathy. Chest: Regular rate and rhythm. No murmurs, rubs, or gallops. Lungs: Clear to auscultation bilaterally. Abdomen: Obese, soft, nontender, nondistended. Normoactive bowel sounds. No rebound or guarding. Lower extremities: No clubbing, cyanosis, or edema. LABS: White count of 8.4, hemoglobin 10.2, platelets of 247,000. Sodium of 136 , potassium 3.5, chloride of 98, bicarb 24, BUN 39, creatinine of 1.5, glucose of 141, lactate of 1.8. IMAGING: Abdominal ultrasound done yesterday is essentially unremarkable. ASSESSMENT AND PLAN: 1. Ms. Fabienne Avila is a 72-year-old woman with multiple medical problems, who presented with sepsis in the setting of urinary tract infection and question pneumonia. She has had some mild rectal bleeding over the last couple of days that continues to taper off. She has not required any blood transfusions, and her hemoglobin remains stable. Again, I suspect that her rectal bleeding is hemorrhoidal in etiology and differential includes diverticular; unlikely, upper gastrointestinal bleeding. At this time, we will hold off on any endoscopic evaluation. We can transition her proton-pump inhibitor to p.o. once daily at this point. 2. Urinary tract infection. Is currently on antibiotics as per ID. 3. Leukocytosis, improving secondary to urinary tract infection. 4. Pulmonary edema. The patient is on Lasix, as per primary team. 5. Chronic kidney disease. Creatinine is stable and at baseline. We will follow with you. Please call with any questions or concerns. [facility]
--- NOTE | 2018-03-15 11:40 | INFECTIOUS DISEASE PROGRESS NO ---
DATE: 03/15/2018 PRESENT ILLNESS: Ms. Avila has an E coli urinary tract infection which is multidrug resistant. She also grew diphtheroids in her blood culture which is a contaminant and does not need treatment. There is a possibility of pneumonia versus pulmonary edema as seen on the chest x-ray. She also has an oral candidiasis. MEDICATIONS: Today is day 4 of aztreonam 1 g IV every 8 hours and day 2 of Zyvox 600 IV every 12 hours. PHYSICAL EXAMINATION: Vital Signs: Temperature is 99.2, pulse rate 105. Respiratory rate 21, blood pressure 152/98, O2 saturation is 96% on 2 L nasal cannula. General: This is an elderly, obese female. She is lying in the bed; currently in no acute distress. HEENT: Atraumatic, normocephalic. Oral mucous membranes are pink and moist. There are some white patches noted to her tongue and she is complaining of a sore throat today. Conjunctivae are pink. Neck: Supple. Trachea is midline. Cardiovascular: Heart rate and rhythm are regular. Normal sinus rhythm on the monitor. Radial and pedal pulses are palpable bilaterally. Respiratory: Lung sounds have some scattered rales and are diminished bilaterally. Abdomen: Soft, obese, nontender. Bowel sounds are active. Neurologic: She is lethargic, but arousable and follows commands. There is generalized weakness. She is mostly nonverbal, but will follow commands appropriately. LABORATORY AND X-RAY: Today her white count is 8.45 hemoglobin 10.2, platelet count 247,000. Creatinine is 1.5, GFR 34. Her previous urine culture grew Escherichia coli that was multidrug resistant. No imaging reports today. ASSESSMENT AND PLAN: Ms. Avila has an Escherichia coli urinary tract infection with a possible pneumonia as seen on the chest x-ray. We are still awaiting results of her procalcitonin level. She has been receiving aztreonam and Zyvox and today is her first normal white count in several days. She continues to be very weak. Today, we will go ahead and get a urine culture and continue Zyvox and aztreonam as ordered. On Sunday, we will also recheck her lab work and a chest x-ray. Also, the patient is complaining of a sore throat and there are some white patches noted to her tongue, so I have ordered Mycelex Kye to dissolve slowly in the mouth every 6 hours. These plans have been discussed with and recommended by Dr. Chávez. COMORBIDITIES: For Ms. Avila include that she is elderly with a history of coronary artery disease, chronic kidney disease, stroke, diabetes mellitus, asthma, obstructive sleep apnea, and Mnire's disease. Dictated by NONI Walker for Joel Chávez MD This chart was documented by, NONI Walker and accurately reflects the services performed, treatment plan and medical decisions as attested by the providers signature Joel Chávez MD. cc: Joel Chávez MD MTD
[2018-03-15] MEDS: CYMBALTA PO SCH (12:08)
[2018-03-15] MEDS ORDERED: MYCOSTATIN SUSP PO SCH (13:00)
[2018-03-15] MEDS: MYCELEX TROCHE PO SCH ×2 (14:40→21:06)
[2018-03-15] MEDS: VALIUM PO SCH (16:06)
[2018-03-15] MEDS: ISOPTIN SR PO SCH ×2 (16:06→21:07)
--- NOTE | 2018-03-15 18:19 | PROGRESS NOTE ---
DATE: 03/15/2018 Overnight no acute events. SUBJECTIVE: One of the patient's daughters is at bedside with whom I had an extensive discussion about patient's clinical condition, patient's past medical history. Patient is sitting in the commode. She still has some word-finding difficulty which is residual from her stroke since December 2017. She does not appear in any acute distress however patient's daughter states the patient was probably experiencing chest pain in the morning time. OBJECTIVE: Temperature 98.6 degrees, pulse 91 per minute, blood pressure 122/ 53, saturating 99% on 2 L nasal cannula . Does not appear in acute distress. Oral cavity is moist with oral thrush.Cardiovascular: S1, S2 normal. Slightly tachycardic. No murmur, rub, or gallop. Air entry bilaterally equal, no wheeze, rhonchi. Mild inspiratory crackles bilateral bases. Abdomen: Soft, nontender. No lower extremity edema . Neurologic: Patient has left-sided facial droop, slurring of speech, she appears alert and he is oriented to herself. She has right upper extremity, right lower extremity weakness with power of about 3/5 and decreased bag bleacher strength on the right hand as compared to the left based on my examination on March 14. Sensation intact. LABS: Today suggestive of resolution of leukocytosis, stable hemoglobin and platelet count, chronic kidney disease stage 3 which appears to be stable, hyperglycemia. Microbiology. No new microbiological data. New urine culture was to be ordered by Infectious Disease . ASSESSMENT AND PLAN: 1. Lower gastrointestinal bleeding with likely diverticular in origin. Hemoglobin, hematocrit has been stable, patient has not had any more lower GI bleeding episodes. Continue intravenous Protonix, psyllium husk, continue intravenous linezolid, aztreonam for possible acute colitis on presentation as well. 2. Urinary tract infection with Escherichia coli sensitive to cefazolin. Continue intravenous aztreonam and Zyvox as per ID, repeat urine culture will be ordered by ID as needed. 3. Suspect bilateral pneumonia, continue intravenous antibiotics. Her procalcitonin level is elevated. 4. Systolic congestive heart failure with ejection fraction of 40%. Continue intravenous Lasix. I will adjust dose according to her response. 5. History of coronary artery disease with multiple stents with angiography a few months ago with diagnosis of further coronary artery disease awaiting intervention, patient is not on any anti-platelet medication considering recent intracranial hemorrhage. Continue patient's home medication of beta juan josé, verapamil, nitroglycerin patch and p.r.n. nitroglycerin, will add isosorbide and lisinopril as tolerated by blood pressure, continue omega- 3 fatty acids. Previously she had not tolerated statin as per the history given by the patient's daughter at bedside. I will consider Cardiology consult as needed. 6. History of ischemic cerebrovascular accident in December 2017 with fall leading to intracranial hemorrhage aware. She has residual slurring of speech, facial droop on the left side. She also has known carotid artery stenosis on the right. 7. History of insulin-dependent diabetes mellitus with hyperglycemia, add mealtime insulin, continue glargine current dose and sliding scale insulin and adjust dose according to her blood sugars tomorrow. 8. Hypotension in the setting of poor p.o. intake with use of antihypertensive medications and her baseline congestive heart failure. Monitor and add antihypertensive medication only as tolerated. 9. Acute kidney injury on chronic kidney disease stage 3 now resolved currently kidney function appears to be at baseline where her creatinine is around 1.7. 10. Deep vein thrombosis prophylaxis SCDs. 11. History of anxiety and Meniere disease. Continue alprazolam for anxiety and patient is taking diazepam for Meniere disease which I have added back. 12. Oral thrush. Patient has been started on clotrimazole. 13. History of peripheral artery disease with stent in renal artery and lower extremities aware. 14. Disposition. Patient remains inside the hospital. I discussed with patient's daughter is the surrogate decision maker about patient's care, at the time of discharge patient's daughter would rather like her to go to home with home physical therapy then rehab. All of her questions have been answered . cc: MD SRUTHI Wright
[2018-03-15] MEDS: XANAX PO SCH (21:07)
[2018-03-15] MEDS: FISH OIL CONCENTRATE PO SCH (21:09)
[2018-03-15] MEDS: NS NEB INH SCH (23:23)
[2018-03-16] MEDS: CARAFATE LIQUID PO SCH ×4 (01:52→22:00)
[2018-03-16] MEDS: MYCELEX TROCHE PO SCH ×4 (01:52→21:59)
[2018-03-16] MEDS: AZACTAM 1 GM in NS 50 ML IV SCH ×3 (01:56→17:33)
[2018-03-16] MEDS: XOPENEX NEB INH SCH ×6 (03:26→23:17)
[2018-03-16] MEDS: HUMULIN R SUBQ SCH ×6 (06:02→22:00)
[2018-03-16] MEDS: NITROGLYCERIN SL PRN ×3 (06:15→06:31)
[2018-03-16] MEDS: NS NEB INH SCH ×4 (07:23→23:17)
[2018-03-16] MEDS: ZYVOX 600 MG/D5W 600 MG/300 ML IVPB IV SCH ×2 (10:07→21:58)
[2018-03-16] MEDS: PROTONIX IV SCH ×2 (10:08→22:00)
[2018-03-16] MEDS: SODIUM CHLORIDE 0.9% INJ SCH (10:08)
[2018-03-16] MEDS: CULTURELLE PO SCH ×2 (10:08→21:59)
[2018-03-16] MEDS: BENADRYL PO SCH ×2 (10:09→21:59)
[2018-03-16] MEDS: CYMBALTA PO SCH (10:09)
[2018-03-16] MEDS: ICAR-C PO SCH ×2 (10:09→22:00)
[2018-03-16] MEDS: LOPRESSOR PO SCH ×2 (10:09→17:35)
[2018-03-16] MEDS: CENTRUM SILVER PO SCH (10:09)
[2018-03-16] MEDS: ROBAXIN PO SCH ×2 (10:09→22:11)
[2018-03-16] MEDS: LASIX IV SCH (10:10)
[2018-03-16] MEDS: NITROGLYCERIN 0.4 MG/HR PATCH TD SCH (10:10)
[2018-03-16] MEDS: BASAGLAR SUBQ SCH (10:11)
[2018-03-16] MEDS: METAMUCIL PO SCH (10:13)
[2018-03-16] MEDS ORDERED: ISOPTIN SR PO SCH (11:15)
[2018-03-16] MEDS ORDERED: IMDUR PO SCH ×2 (11:15→21:00)
[2018-03-16] MEDS ORDERED: ISMO PO ONE (11:47)
--- NOTE | 2018-03-16 15:45 | PROGRESS NOTE ---
DATE: 03/16/2018 OVERNIGHT EVENTS: No acute overnight events. I had added her verapamil back which she tolerated well. My plan was to start her on her isosorbide today. Before I could see her today, I was informed by patient's nurse that the patient was experiencing chest pain, and the patient's daughter at bedside was very upset about not being able to get her medications. I evaluated the patient immediately at bedside. The patient is complaining of substernal chest pain. The patient has had a stroke and some expressive aphasia because of that, so she could not really verbalize her complaints completely, but she did tell me that she is complaining of substernal chest pain. When her daughter interrogated her by leading directions, she also indicated that her chest pain was going to her back and neck. The patient is also moaning because of pain. She appears a little tachypneic and bedside monitor suggests tachycardia. OBJECTIVE: Vital Signs: Temperature 99, pulse 103 per minute, blood pressure 146/40. She is saturating 98% on 2 L nasal cannula. PHYSICAL EXAMINATION: General: Patient appears in mild distress. Oral cavity is moist. No oral thrush that I could see today. Chest: She has tenderness on palpation over the sternum. Air entry bilaterally equal. No wheeze or rhonchi. Mild inspiratory crackles in bilateral infrascapular region. Cardiovascular: S1, S2 normal. No murmur, rub, or gallop. Tachycardic. Abdomen soft, nontender. No lower extremity edema. Neurologic: She has left- sided facial droop and slight slurring of the speech. She is oriented to herself. If leading questions are asked, she can answer appropriately most of the time. On my previous examination, she had right upper extremity and right lower extremity weakness with power of 3 on 5 and decreased concrete bucket loader stent of the right hand as compared to left and her sensations were intact. LABORATORY DATA: No CBC today. No BMP today. Her blood glucose has been running between 132 to 290. Her troponin is 0.174. Her proBNP has decreased to 10,000 from 28,000 on admission. EKG suggestive of sinus tachycardia with nonspecific T-wave changes. Microbiology: No microbiological data. Repeat urine culture has not shown any growth. ASSESSMENT AND PLAN: 1. Acute chest pain episode with elevated troponin. Though EKG does not have any new abnormalities, the patient does have known history of coronary artery disease and, according to history given by the daughter at bedside, she is pending intervention. Previously, intervention was not carried out as she had a hemorrhagic stroke in December 2017, and she needed to come off anticoagulation or antiplatelet therapy. Considering her elevated troponin and chest pain, I will have Cardiology evaluation. Meanwhile, continue nitroglycerin patch, isosorbide, nitroglycerin sublingual as needed, beta juan josé, and verapamil, lisinopril which are her home medication. I will trend troponins as well. 2. Lower gastrointestinal bleed likely diverticular in origin on presentation and acute blood loss anemia. Hemoglobin and hematocrit have been stable. Has not had any bloody bowel movements since admission. Continue intravenous Protonix, sucralfate psyllium husk. 3. Urinary tract infection with Escherichia coli and suspected bilateral pneumonia. Continue intravenous Aztreonam and Zyvox as per Infectious Disease's recommendation. Follow up with repeat urine culture results. Procalcitonin level is elevated. 4. Systolic congestive heart failure with ejection fraction of 40%. Continue intravenous Lasix. I will decrease the dose today. On examination, her crackles had decreased and her BUN is also rising. Continue Muniz catheter for close input and output monitoring since admission. However, she has maintained a clean urine output. 5. History of coronary artery disease. Plan as mentioned above. Continue omega -3 fatty acids. Previously, she did not tolerate aspirin. She did not tolerate statin, and she has not been on anti-platelet because of recent hemorrhagic stroke according to history given by daughter. 6. History of ischemic cerebrovascular accident in 12/2017 with fall leading to intracranial hemorrhage, aware. She has residual slurring speech, facial droop on the left side. She also has known carotid artery stenosis on the right. 7. History of insulin-dependent diabetes mellitus with hyperglycemia. Increase mealtime insulin. Continue glargine and sliding scale insulin. 8. Hypotension, now resolved. 9. Acute kidney injury on chronic kidney disease, stage 3, on presentation; now resolved. Currently, her creatinine appears to be close to her baseline. 10. Deep venous thrombosis prophylaxis; sequential compression devices. 11. History of anxiety and Meniere's disease. Continue alprazolam and diazepam. 12. Oral thrush. Continue clotrimazole. 13. History of peripheral artery disease with stent in renal artery and lower extremities, aware. DISPOSITION: The patient remains inside the hospital. I will await Cardiology recommendation if the patient needs further investigation. Her immediate interventions and plan of care were discussed extensively with the patient's daughter at bedside. All of her questions and concerns have been answered satisfactorily. I reiterated that considering her low blood pressure initially, I had discontinued her antihypertensive medications and my plan was to add back gradually, which I have done. cc: Alex Quintanilla MD MTDD
--- NOTE | 2018-03-16 16:58 | CARDIOLOGY CONSULTATION ---
DATE: 03/16/2018 REQUESTING PHYSICIAN: Hospital Service REASON FOR CONSULTATION: Chest discomfort, palpitations. HISTORY OF PRESENT ILLNESS: Ms. Avila is a pleasant 72-year-old female who presented to the hospital on 03/10/2018 feeling very weak. At that time, she was found to be hypotensive, and they identified positive blood cultures and positive urine culture for E. coli. That was an E. coli that was sensitive to cefazolin. The patient was admitted to [facility] initially and subsequently developed bloody diarrhea, and they transferred her to the main mcgraw at [facility] for further care. The patient has been treated with antibiotics. Lately she is taking linezolid, and Dr. Chávez from the Infectious Disease Service has been following her. The patient says that for the past 2 days, she developed tightness in the chest, discomfort , and a rapid pulse. Apparently her medications had been put on hold when she developed the episode of hypotension, and the hospitalist requested a cardiac evaluation because of her previous history of heart disease. PAST MEDICAL HISTORY: Positive for several episodes of angina pectoris and several coronary interventions over the past 15 years or so. She has been followed by Dr. Ravin King at the [facility] in [place]. I do not have any details of what coronary intervention has been carried out. However, it seems like about a year ago, she had the last intervention, and lately she had complained of angina, and they had planned on doing a chronic occlusion procedure on her. Unfortunately around 01/18/2018, she suffered a left-sided brain stroke with right-sided hemiparesis that involved the entire right side of her body. She had to spend a few days in the hospital at [facility]. From there, she was taken to a long term or rehab facility in [place] where she spent 2 to 3 weeks. Eventually she made it home around 02/16/2018, and she was at home up until the time of admission to [facility] which is about 6 days ago. The patient said that she had recovered the ability to get up by herself and walk even without a walker. She did have some issues with difficulty swallowing intermittently. She had no issues with bloody stools at home. They just happened here recently. Because of the stroke, the formal service waiter recommended to postpone any coronary interventions to minimize the risk of bleeding within the stroke. Medical history is positive for hypertension. She has diabetes mellitus type 2. She has been diagnosed with Meniere's disease, so her balance is not that good. PAST SURGICAL HISTORY: She had a fall in the past and has required a procedure to deal with that in the right shoulder. She has had cholecystectomy, appendectomy. FAMILY HISTORY: Positive for heart disease. SOCIAL HISTORY: She has been a for 11 years. She has 2 children. Her son and daughter-in- law were at the bedside. The patient quit smoking several years ago. HOME MEDICATIONS: Listed at the time of the current admission included alprazolam 0.25 at bedtime, diazepam 5 mg daily, Benadryl 25 twice a day, Cymbalta 30 mg daily, Nexium 40 daily, Lasix 40 daily, insulin regular 45 units twice a day, Combivent 1 puff every 6 hours, Imdur 90 mg daily, lisinopril 10 daily, methocarbamol 500 twice a day, metoprolol 25 daily, nitroglycerin patch daily and sublingual p.r.n., promethazine 25 every 6 hours, verapamil 120 twice a day. ALLERGIES: Her list of allergies is really impressive. She is intolerant to all the opiates including codeine and morphine because of nausea and vomiting. She has anaphylaxis to metronidazole, hives when she takes Betadine. She is intolerance to calcium blockers, Zosyn, sulfa drugs. It looks like she is also allergic to penicillins. REVIEW OF SYSTEMS: Since the stroke, she has been limited. Prior to the stroke , she was able to live independently without any difficulty. Her daughter has been staying with her at home. She lives in the [facility]. No other major positives at this time. The son recalls that she may have required a renal stent at some point and also some sort of surgery to the groin after one coronary intervention in the past. He said that she has 11 stents or something along those lines. PHYSICAL EXAMINATION: Blood pressure is 130/61, temperature 98.6, pulse 101, respirations 18. The patient is awake, alert and oriented, no distress. HEENT is unremarkable. Chest: Clear to auscultation and percussion. Heart sounds are regular and rhythmic. Abdomen is obese, nontender. Extremities showed no edema. Pulses are diminished, palpable. Neurologic: She does have right arm paresis and also some mild dysphasia. Weakness on the right side of her face and some weakness in the right lower extremity. DIAGNOSTIC DATA: Her blood work from 03/15/2018 shows hemoglobin of 10.2, hematocrit 32.8, platelet count is 247,000. Blood work from yesterday showed sodium 136, potassium 3.5, BUN is 39, creatinine 1.5. ProBNP was 10,439. Troponin level is 0.174, it was 0.046 on , and this is slightly elevated. EKG done today at 11:51 shows sinus tachycardia with evidence of an inferior scar, possibly an anterior scar, minor nonspecific T wave change. The EKG from 03/10/2018 at 3:43 p.m. showed PACs, sinus tachycardia, and a more definite ST- T abnormality. She may have been ischemic at that time. Chest x-ray done at 1:00 p.m. on 03/12/2018 showed pulmonary edema versus pneumonia. Renal CT showed possible constipation. Carotid ultrasound showed critical stenosis within the proximal right internal carotid artery between 80% and 99%, mild stenosis in the proximal internal carotid artery less than 40%. Abdominal ultrasound shows essentially unremarkable abdominal ultrasound. IMPRESSION: 1. The patient has extensive history of coronary artery disease with a pattern of angina pectoris that is functional class 2 to 3, who was scheduled to have a coronary intervention; however, this was postponed because of a stroke. 2. Carotid Doppler evidence of severe stenosis of proximal right internal carotid artery and mild on the left. 3. Gastrointestinal bleeding, transient, brief, self limited. 4. Urinary tract infection with Escherichia coli, sensitive to cefazolin. 5. Chronic kidney disease. 6. Diabetes mellitus type 2. 7. Status post left brain stroke on 01/18/2018. RECOMMENDATIONS: At this point in time, I agree with not reinstating antiplatelet agents because of the GI bleeding; however, my concern is after reviewing the report of the carotid ultrasound that she has a critical stenosis in the right carotid artery which could potentially lead to ischemia of the right side of the brain with contralateral weakness. We may have to get some opinion from Vascular Surgery about this issue. I will try to get the records from Dr. King's office to figure out exactly what has been going on. The patient's echocardiogram done on 03/11/[address] that was [address] Dr. Agosto indicated ejection fraction of 40%; however, the study was technically very limited. We may have to order a gated SPECT study to get a more accurate evaluation of ejection fraction. Further advice will be forthcoming. Thank you for asking us to participate in her evaluation. cc: Rogelio Israel MD MTD
[2018-03-16] MEDS: VALIUM PO SCH (17:33)
[2018-03-16] MEDS: PRINIVIL PO SCH (17:35)
[2018-03-16] MEDS: IMDUR PO SCH (21:59)
[2018-03-16] MEDS: ISOPTIN SR PO SCH (21:59)
[2018-03-16] MEDS: XANAX PO SCH (22:00)
[2018-03-16] MEDS: FISH OIL CONCENTRATE PO SCH (22:00)
[2018-03-16] MEDS: TYLENOL PO PRN (22:14)
[2018-03-17] MEDS: LOPRESSOR PO SCH ×4 (00:32→22:47)
[2018-03-17] MEDS: AZACTAM 1 GM in NS 50 ML IV SCH ×4 (00:33→15:54)
[2018-03-17] MEDS: CARAFATE LIQUID PO SCH ×5 (00:34→20:14)
[2018-03-17] MEDS: MYCELEX TROCHE PO SCH ×4 (01:09→22:46)
[2018-03-17] MEDS: XOPENEX NEB INH SCH ×6 (03:31→22:50)
[2018-03-17] MEDS ORDERED: LASIX IV SCH (06:00)
[2018-03-17] MEDS: HUMULIN R SUBQ SCH ×7 (06:24→20:17)
[2018-03-17] MEDS: NS NEB INH SCH ×3 (07:39→16:19)
--- NOTE | 2018-03-17 07:43 | GENERAL SURGERY CONSULTATION ---
DATE: 03/17/2018 REQUESTING PHYSICIAN: Dr. Quintanilla. REASON FOR CONSULTATION: Carotid stenosis. HISTORY OF PRESENT ILLNESS: A 72-year-old with a complicated history who presented initially to the hospital with altered mental status and a syncopal episode. She apparently has had a previous stroke that changed to be hemorrhagic during the workup. This apparently was in December. She has been followed by a vascular surgeon in [place]. She apparently had persistent effects from her stroke and having chest pain. She has been worked up by Cardiology, and there is some concern about disease and may need coronary intervention, but that was postponed secondary to stroke. I was asked to weigh an opinion on the carotid stenosis. PAST MEDICAL HISTORY: Includes coronary artery disease status post intervention, sleep apnea, asthma, diabetes type 2, hypertension, chronic kidney disease, CVA, Mnire's disease. PAST SURGICAL HISTORY: Includes cholecystectomy, appendectomy, bowel surgery, cataract surgery. FAMILY HISTORY: Positive for coronary artery disease. SOCIAL HISTORY: Lives with family. ALLERGIES: Codeine, Flagyl, Betadine, doxycycline, morphine, beta blockers, calcium channel blockers, sulfa. HOME MEDICATIONS: Reviewed. REVIEW OF SYSTEMS: A full 10 point review of systems obtained and negative except as specified in HPI. PHYSICAL EXAMINATION: Vital Signs: Patient is currently afebrile. Her vital signs are stable. General: No acute distress. Interactive female looks stated age. HEENT: Normocephalic, atraumatic. Pupils equal, round, and reactive to light. Mucous membranes moist. Oropharynx benign. Neck: Supple. Trachea midline. Cardiovascular: Regular rate and rhythm. Lungs: Grossly clear. Abdomen: Soft, nontender, nondistended. Extremities: Seems to be able to move all extremities. Neurologic: Had some left-sided facial droop and some slight slurring of speech. She does have some residual right upper extremity weakness. DIAGNOSTIC DATA: Laboratory: None recent, but of note yesterday her BNP was 10,000. Carotid study reviewed. ASSESSMENT AND PLAN: A 72-year-old with extensive medical history, now with carotid stenosis. 1. Carotid stenosis. In the light of the fact that the patient has a very complicated history with hemorrhagic stroke, I would probably defer to her vascular surgeon in [place] for an evaluation. There is some discrepancy on previous studies that she may have less stenosis than is reported here, but again we will need to have her vascular surgeon weigh an opinion. 2. Multiple medical comorbidities. We will defer to the hospitalist service, but this makes any kind of intervention high risk. cc: Juan Antonio Carpio MD
[2018-03-17 08:02] LABS: BASO# 0.02 X1000 (0.0-0.2); BASO% 0.2 % (0.0-0.8); EOS# 0.25 X1000 (0.0-0.7); EOS% 2.5 % (0.0-10.0); HEMATOCRIT 29.3 % (37.0-47.0); HEMOGLOBIN 9.1 g/dL (12.0-16.0); IMM GRAN# 0.06 X1000 (0.0-0.04); IMM GRAN% 0.6 % (0.0-0.5); LYMPH# 1.59 X1000 (1.2-3.4); LYMPH% 15.9 % (20.5-51.1); MCH 28.4 PG (27-31); MCHC 31.1 g/dL (33-37); MCV 91.6 FL (81-99); MONO# 0.92 X1000 (0.11-0.59); MONO% 9.2 % (1.7-9.3); NEUT# 7.17 X1000 (1.4-6.5); NEUT% 71.6 % (42.2-75.2); PLT 267 X1000 (130-400); RDW 14.3 % (11.5-14.5); WBC 10.01 X1000 (4.8-10.8)
[2018-03-17 08:12] LABS: CALCIUM 7.9 mg/dL (8.8-10.2); CREATININE 1.8 mg/dL (0.5-0.9); POTASSIUM 3.7 mmol/L (3.5-5.1)
[2018-03-17] MEDS: BENADRYL PO SCH ×2 (08:41→20:14)
[2018-03-17] MEDS: ICAR-C PO SCH ×2 (08:41→20:14)
[2018-03-17] MEDS: PRINIVIL PO SCH (08:41)
[2018-03-17] MEDS: CENTRUM SILVER PO SCH (08:41)
[2018-03-17] MEDS: METAMUCIL PO SCH (08:41)
[2018-03-17] MEDS: CULTURELLE PO SCH ×2 (08:42→20:15)
[2018-03-17] MEDS: SODIUM CHLORIDE 0.9% INJ SCH (08:42)
[2018-03-17] MEDS: CYMBALTA PO SCH (08:42)
[2018-03-17] MEDS: PROTONIX IV SCH ×2 (08:42→20:15)
[2018-03-17] MEDS: ROBAXIN PO SCH ×2 (08:42→20:15)
[2018-03-17] MEDS: NITROGLYCERIN 0.4 MG/HR PATCH TD SCH (08:43)
[2018-03-17] MEDS: BASAGLAR SUBQ SCH (08:43)
[2018-03-17] MEDS: ZYVOX 600 MG/D5W 600 MG/300 ML IVPB IV SCH ×3 (09:39→22:46)
[2018-03-17] MEDS: NITROGLYCERIN SL PRN ×2 (12:21→12:28)
[2018-03-17] MEDS: VALIUM PO SCH (15:54)
--- NOTE | 2018-03-17 18:12 | PROGRESS NOTE ---
DATE: 03/17/2018 INTERVAL HISTORY: I was told by the nursing team again and again that patient's daughter at bedside had been interfering in patient's care. I was told that in the morning time when I was also told that patient's daughter at bedside does not allow proper medication to patient and always questions the medication that she is receiving. Previously on my encounter patient's daughter had expressed her concerns that patient was not receiving her home regimen. I had explained to her repeatedly that her clinical condition while she is in the hospital is different than her clinical condition at home and the reason why her cardiovascular regimen was initially changed was my concern for her low blood pressure in setting of her pneumonia and ongoing urinary tract infection and my plan was to gradually add back her heart medications as tolerated by her blood pressure. Today during my encounter I mentioned to patient's daughter that I had consulted Cardiology and they had recommended metoprolol b.i.d. if her blood pressure tolerates. However patient's daughter tells me that she would not allow metoprolol to be given 3 times a day as patient previously had shortness of breath episode if she was given metoprolol more than 1. I explained to her that currently considering her chest pain episode that she had yesterday and elevated troponin there might be clinical benefit of giving metoprolol more than her routine usual dose however she vehemently refuses to allow me to do that despite understanding the implications of it. Patient denies any chest pain or shortness of breath. She has had loose bowel movements. VITALS: Temperature 98 degrees, pulse 90 per minute, blood pressure 109/38, saturating 99% 2 L nasal cannula. PHYSICAL EXAMINATION: General: Does not appear in acute distress, quiet, lying in the bed comfortably. Oral cavity is moist. No thrush. Air entry bilateral equal, no wheeze or rhonchi. Mild intrascapular crackles. S1, S2 normal. No murmur or gallop. Abdomen: Soft, mildly tender in right upper quadrant, gaseous distention with tympany to percussion, active bowel sounds. No lower extremity edema. Neurological: Appears alert, she is oriented to herself and can identify me as a doctor. She is following simple commands like opening mouth. She is able to raise all of her extremities against ground level. 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 LAB DATA: Suggestive of no leukocytosis, stable hemoglobin, hematocrit, platelet count, normal electrolytes with chronic kidney disease stage 3 to stage 4. Microbiology, repeat urine culture no growth till date. ASSESSMENT AND PLAN: 1. Acute chest pain episode with elevated troponins on March 16 now resolved. EKG did not have new abnormalities. 2. History of coronary artery disease pending further intervention. According to history given by the daughter, patient had hemorrhagic stroke in December 2017 and she needed to come off anti-platelet therapy. Echocardiogram on March 11 had suggested ejection fraction of 40%, cardiology on board. Continue nitroglycerin patch, nitroglycerin sublingual as needed, isosorbide, verapamil, lisinopril, troponin peaked. Patient is ordered to receive metoprolol 25 mg t.i.d. if her blood pressure tolerates with holding parameters however patient's daughter refuses to allow multiple times of dosing and she would only allow once a day. Lower gastrointestinal bleed likely diverticular origin on presentation and leading to acute blood loss anemia now resolved. Hemoglobin, hematocrit has been stable. Continue intravenous Protonix, sucralfate, psyllium husk, iron tablets. 3. Urinary tract infection with Escherichia coli and suspected bilateral pneumonia. Continue intravenous aztreonam and intravenous Zyvox as per ID recommendation. Repeat urine culture has no growth till date. Followup repeat chest x-ray tomorrow. Procalcitonin level was elevated 2.6 however patient's clinical condition has improved. My plan is to discontinue antibiotics on March 18 after discussing with ID. 4. Systolic congestive heart failure with ejection fraction of 40%. Change Lasix to p.o. Remove Muniz catheter. 5. Continue omega-3 fatty acids. She did not tolerate statin for coronary artery disease in the past . 6. History of ischemic cerebrovascular accident in December 2017 with fall leading to intracranial hemorrhage with residual slurring speech, expressive aphasia, left facial droop, right upper extremity, right lower extremity weakness and 80-99% stenosis of right internal carotid artery aware. The patient is not on any anti-platelet medication. Surgery was consulted who recommended intervention as per her outpatient vascular surgeon after discharge. 7. History of insulin-dependent diabetes mellitus, continue current insulin regimen. Blood sugars are better controlled. 8. Acute kidney injury on chronic kidney disease stage 3 resolved. 9. Deep vein thrombosis prophylaxis SCDs. 10. History of anxiety and Meniere disease, continue alprazolam and diazepam. 11. Oral thrush now resolved. Continue clotrimazole lozenges . 12. History of peripheral artery disease with stent in renal artery in lower extremity. 13. Disposition. If patient's chest x-ray shows improvement my plan is to discontinue antibiotics tomorrow and discharge her home pending discussion with Infectious Disease and Cardiology. Previously patient's daughter had expressed her wishes to take her to home and follow up with outpatient provider. cc: Alex Quintanilla MD
[2018-03-17] MEDS: IMDUR PO SCH (20:14)
[2018-03-17] MEDS: TYLENOL PO PRN (20:14)
[2018-03-17] MEDS: ISOPTIN SR PO SCH (20:14)
[2018-03-17] MEDS: XANAX PO SCH (20:15)
[2018-03-17] MEDS: FISH OIL CONCENTRATE PO SCH (20:15)
[2018-03-18] MEDS: CARAFATE LIQUID PO SCH ×3 (01:27→14:47)
[2018-03-18] MEDS: MYCELEX TROCHE PO SCH ×3 (01:27→14:47)
[2018-03-18] MEDS: AZACTAM 1 GM in NS 50 ML IV SCH ×2 (01:27→10:23)
[2018-03-18] MEDS: XOPENEX NEB INH SCH ×4 (03:05→15:52)
[2018-03-18] MEDS: HUMULIN R SUBQ SCH ×4 (06:17→15:28)
--- NOTE | 2018-03-18 06:39 | Diag Imaging Result Doc PS360 ---
EXAM: CHEST-PORTABLE HISTORY: pneumonia TECHNIQUE: Portable chest single view COMPARISON: 03/12/2018 FINDINGS: The lungs are well expanded. The heart is not enlarged. The vessels are not distended. There are no infiltrates. No effusion identified. IMPRESSION: No pneumonia or significant pulmonary edema on the current study. Electronically signed by Ray Avelar 03/18/2018 6:37 AM
[2018-03-18 07:30] LABS: BASO# 0.01 X1000 (0.0-0.2); BASO% 0.1 % (0.0-0.8); EOS# 0.17 X1000 (0.0-0.7); EOS% 1.8 % (0.0-10.0); HEMATOCRIT 29.3 % (37.0-47.0); HEMOGLOBIN 9.3 g/dL (12.0-16.0); IMM GRAN# 0.06 X1000 (0.0-0.04); IMM GRAN% 0.6 % (0.0-0.5); LYMPH# 1.39 X1000 (1.2-3.4); LYMPH% 14.6 % (20.5-51.1); MCH 28.5 PG (27-31); MCHC 31.7 g/dL (33-37); MCV 89.9 FL (81-99); MONO# 0.77 X1000 (0.11-0.59); MONO% 8.1 % (1.7-9.3); MPV 8.7 FL (7.4-10.4); NEUT# 7.11 X1000 (1.4-6.5); NEUT% 74.8 % (42.2-75.2); PLT 268 X1000 (130-400); RBC 3.26 XMIL (4.2-5.4); RDW 14.1 % (11.5-14.5); WBC 9.51 X1000 (4.8-10.8)
--- NOTE | 2018-03-18 07:36 | EKG Report ---
Test Performed on : 03/16/2018 11:51:14 AM Test Reason : Chest pain Blood Pressure : / mmHG Vent. Rate : 104 BPM Atrial Rate : 104 BPM P-R Int : 154 ms QRS Dur : 096 ms QT Int : 372 ms P-R-T Axes : 033 037 065 degrees QTc Int : 489 ms Sinus tachycardia. Nonspecific T wave abnormality Abnormal ECG When compared with ECG of 12-MAR-2018 14:12, Minimal criteria for Anterior infarct are no longer present Nonspecific T wave abnormality has replaced inverted T waves in Anterior leads Confirmed by Tr ESPINOZA, Steven Hough ([id number]) on 03/18/2018 1:13:38 PM
[2018-03-18 07:55] LABS: CALCIUM 8.9 mg/dL (8.8-10.2); CREATININE 1.9 mg/dL (0.5-0.9); POTASSIUM 3.6 mmol/L (3.5-5.1)
[2018-03-18] MEDS ORDERED: LASIX PO SCH (09:00)
[2018-03-18] MEDS: NITROGLYCERIN SL PRN ×2 (10:20→10:26)
[2018-03-18] MEDS: ZYVOX 600 MG/D5W 600 MG/300 ML IVPB IV SCH (10:23)
[2018-03-18] MEDS: ICAR-C PO SCH (10:24)
[2018-03-18] MEDS: VALIUM PO SCH ×2 (10:25→11:15)
[2018-03-18] MEDS: METAMUCIL PO SCH ×2 (10:25→11:17)
[2018-03-18] MEDS: CENTRUM SILVER PO SCH (10:25)
[2018-03-18] MEDS: ROBAXIN PO SCH (10:26)
[2018-03-18] MEDS: CULTURELLE PO SCH (10:26)
[2018-03-18] MEDS: CYMBALTA PO SCH (10:37)
[2018-03-18] MEDS: PRINIVIL PO SCH (10:37)
[2018-03-18] MEDS: PROTONIX IV SCH (10:38)
[2018-03-18] MEDS: BENADRYL PO SCH (10:38)
[2018-03-18] MEDS: NITROGLYCERIN 0.4 MG/HR PATCH TD SCH (10:47)
[2018-03-18] MEDS: BASAGLAR SUBQ SCH (10:48)
[2018-03-18] MEDS: LOPRESSOR PO SCH ×2 (10:50→15:29)
[2018-03-18] MEDS ORDERED: VALIUM PO PRN (15:01)
[2018-03-18 15:15] VITALS: BP 111/48
--- NOTE | 2018-03-19 00:24 | GASTROENTEROLOGY PROGRESS NOTE ---
DATE: 03/18/2018 SUBJECTIVE: No acute overnight events. Afebrile. No N/V/F, CP, SOB, abdominal pain, or rectal bleeding. Tolerating PO. Patient being discharged. Daughter is concerned that patient does strain with having BMs, which may have attributed to the hemorrhoidal bleeding. OBJECTIVE: VS: T 98.3 HR 103 RR 20 BP 111/48 O2 sat 98% 2L NC GEN: awake, alert, NAD HEENT: anicteric, MMM NECK: No LAD, JVD CV: RRR, no mrg PULM: CTAB, no wheezing or crackles ABD: soft, NT/ND, obese, NABS, no rebound or guarding NEURO: nonfocal; CN II-XII grossly intact LABS from 03/17 WBC 9.5 Hgb 9.3 plts 268K Na 133 K 3.6 Cl 96 CO2 23 BUN 50 Cr 1.9 glucose 112 CXR unremarkable A/P Ms. Fabienne Avila is a 72-year-old woman admitted with sepsis in the setting of UTI. GI following for rectal bleeding thought to hemorrhoidal vs diverticular, which has resolved. Hgb has remained stable. Patient is up to date with surveillance colonoscopy for history of colonic polyps. #LGIB: diverticular vs hemorrhoids - avoid NSAIDs, blood thinners - cont PPI once daily - routine surveillance colonoscopy as outpatient #Anemia: from GI bleeding; stable hgb #UTI: on abx as per ID #Leukocytosis: resolved #Pulmonary edema: resolved with lasix #CKD: creatinine at baseline #History of colonic polyps: non-urgent follow-up with GI upon discharge Please call with any questions or concerns. [facility]
--- NOTE | 2018-03-19 10:17 | DISCHARGE SUMMARY ---
ADMISSION DATE: 03/10/2018 DISCHARGE DATE: 03/18/2018 DISCHARGE DIAGNOSES: 1. Acute encephalopathy, likely metabolic encephalopathy. 2. Acute chest pain with elevated troponin, in the substernal region. 3. History of coronary artery disease. 4. Urinary tract infection with Escherichia coli. 5. Bilateral lower lobe pneumonia. 6. Systolic congestive heart failure exacerbation. 7. Syncope on presentation. 8. Hypotension. OTHER DIAGNOSES: 1. Hypotension because of sepsis and use of multiple antihypertensive medications. 2. History of coronary artery disease, pending coronary intervention due to recent history of hemorrhagic stroke. 3. Recent history of hemorrhagic stroke in December 2018. 4. Systolic congestive heart failure with ejection fraction of 40%. 5. History of internal artery stenosis with right internal carotid artery 80 to 99 percent stenosis. 6. History of insulin-dependent diabetes mellitus. 7. Acute kidney injury on chronic kidney disease stage 3 on presentation. 8. History of anxiety and Meniere's disease. 9. Oral thrush. 10. History of peripheral artery disease with stent in renal artery and lower extremity. PROCEDURES DURING HOSPITALIZATION: None. CONSULTATIONS DURING HOSPITALIZATION: 1. Gastroenterology, Dr. Cruz. 2. Infectious disease, Dr. Chávez. 3. Cardiology, Dr. Israel. 4. Surgery, Dr. Carpio. DISCHARGE MEDICATIONS: 1. Alprazolam 0.25 mg at nighttime. 2. Washburn-3 fatty acids 500 mg at nighttime. 3. Diazepam 5 mg daily p.r.n. for dizziness related to Meniere's disease. 4. Benadryl 25 mg p.o. b.i.d. 5. Duloxetine 30 mg daily. 6. Furosemide 40 mg daily. 7. Insulin regular human 25 units b.i.d. 8. Combivent Respimat inhaler 1 puff routine q.6 hours. 9. Isosorbide mononitrate extended release 90 mg daily. 10. Lisinopril 10 mg daily. 11. Methocarbamol 500 mg b.i.d. 12. Metoprolol 25 mg daily. 13. Nitroglycerin 0.4 mg sublingual as needed for chest pain. 14. Nitroglycerin patch 1 daily. 15. NPH human insulin isophane, Novolin and 45 units b.i.d. subcutaneous. 16. MiraLAX 17 g p.o. daily. 17. Verapamil 120 mg p.o. extended release at nighttime. 18. Esomeprazole 40 mg b.i.d. for 4 weeks and then taken once daily. 19. Promethazine 25 mg p.o. q.6 hours p.r.n. for nausea or vomiting. VITAL SIGNS: At the time of discharge, temperature 98.3 degrees, pulse 103 per minute, blood pressure 111/48, saturation of 98% on 1 L nasal cannula, respiratory rate of 20 per minute. DISCHARGE LABS: WBC count of 9000, hemoglobin of 9.3, platelet count of 268, 000. Sodium of 133, chloride of 96, BUN of 50, creatinine of 1.9. Blood sugars in acceptable range. Microbiology on admission, one of two blood cultures was growing diphtheroids. However, it was thought to be a contaminant. Urine culture was growing Escherichia coli which was sensitive to cefazolin and Zosyn. PHYSICAL EXAMINATION: General: At the time of discharge, the patient did not appear in acute distress. Respiratory: Air entry bilaterally equal. No wheeze or rhonchi. Mild infrascapular crackles. Cardiovascular: S1 and S2 normal. No murmur. Abdomen: Soft, nontender. Extremities: No lower extremity edema. Neurologic: She was alert and oriented. Neurological examination had detected that she was oriented to herself. She was able to identify me as a doctor. Was following simple commands like opening mouth, raising her hand. However, she did have some expressive aphasia. She had weakness of right upper and right lower extremity with power of 3/5 with decreased right hand panel assembler strength. DISCHARGE INSTRUCTIONS: The patient was advised to follow up with her heart doctor and vascular surgeon doctor for coronary artery disease and carotid artery disease within 5 to 7 days of discharge. HOSPITAL COURSE SUMMARY: Ms. Avila is a 72-year-old lady who came in with complaints of confusion and a syncopal episode en route to the emergency room. She had been having vomiting and diarrhea with blood in it. On admission, she also had lactic acidosis with a plasma lactate of 6. It was thought that her blood in the stool was diverticular in origin. She was resuscitated and was started on intravenous antibiotics. During hospital admission, she was treated with IV antibiotics for pneumonia and urinary tract infection which improved. Her mental status had become normal. While in the hospital, she had developed episodes of acute chest pain and tachycardia. Her troponin, however, had shown a flat trend. According to the history given by the daughter, the patient has known history of coronary artery disease and carotid artery stenosis. However, considering her recent ischemic stroke in December 2017, which converted into hemorrhagic stroke, no cardiac intervention was done and all of her antiplatelet medications were held. She was supposed to see sports bookmaker in March 2018 and to discuss about cardiac intervention for her residual coronary artery disease. During hospital admission, medication changes were made in her cardiovascular regimen considering her frequent tachycardia and hypotension episode. However, the daughter did not allow additional medication administration and she only allowed us to give medications which patient was taking at home despite understanding the possible adverse consequences of that. It was explained fully about the patient's cardiovascular health as well as different physiological state in the presence of infection. Cardiology was consulted during this admission considering the patient's chest pain episode. However, they had recommended continued conservative management as an outpatient with cardiology followup. At the time of discharge, she was hemodynamically stable. She was advised to follow up with her regular sports bookmaker. Vascular surgeon was also consulted for her right-sided internal carotid stenosis which was known as per the history given by daughter. Noted to be previous stroke in December 2017 that was on the left side. Vascular surgery had recommended outpatient vascular surgery followup. Her urinary tract infection and pneumonia were treated with intravenous aztreonam and linezolid. Repeat chest x-ray and urine culture at the time of discharge were unremarkable. For systolic congestive heart failure with low ejection fraction, she was continued on Lasix. Her blood sugars were well controlled on insulin. On presentation, acute kidney injury on chronic kidney disease stage 3 was noted which was resolved at the time of discharge. She was continued on Diazepam 5 mg for her anxiety and Meniere's disease, was also given clotrimazole lozenges for oral thrush. More than 30 minutes were spent discharging the patient. All of her questions have been answered. cc: MD SRUTHI Wright
== END 2018-03-18 17:30 | disposition home or self-care (01) | DRG 871 ==
LOC: P.ED 14:38 → SUATTDRO 17:02 → P.MEDSURG 17:02 → 3N 03-11 15:10
PROVIDERS: ATTEND Internal Medicine
CPT/HCPCS: 71010; 71020; 71045; 71046; 74019; 74020; 74176; 76700; 80048; 80053; 81001; 82270; 82550; 82805; 82948; 83605; 83735; 83880; 84145; 84484; 85014; 85018; 85025; 85610; 85730; 87040; 87045; 87046; 87077; 87088; 87186; 87205; 87275; 87276; 87324; 87449; 87804; 89055; 93005; 93010; 93306; 93880; 94640; 94761; 96361; 96365; 96375; 99284; 99285; 99291; A9270; C8929; C9113; J1200; J1815; J1940; J2020; J2185; J2543; J2550; J7030; Q9957; S0073; S0164; XXXXX

== ENCOUNTER 2018-07-11 11:51 | Inpatient (IN) ==
[2018-07-11] MEDS ORDERED: NS 500 ML IV ONE (12:26)
[2018-07-11 13:17] LABS: BASO# 0.02 X1000 (0.0-0.2); BASO% 0.2 % (0.0-0.8); EOS# 0.17 X1000 (0.0-0.7); EOS% 1.6 % (0.0-10.0); HEMATOCRIT 35.6 % (37.0-47.0); IMM GRAN# 0.03 X1000 (0.0-0.04); IMM GRAN% 0.3 % (0.0-0.5); LYMPH# 2.07 X1000 (1.2-3.4); MCH 28.5 PG (27-31); MCHC 33.7 g/dL (33-37); MCV 84.6 FL (81-99); MONO# 0.81 X1000 (0.11-0.59); MONO% 7.8 % (1.7-9.3); MPV 8.6 FL (7.4-10.4); NEUT# 7.24 X1000 (1.4-6.5); NEUT% 70.1 % (42.2-75.2); PLT 348 X1000 (130-400); RBC 4.21 XMIL (4.2-5.4); RDW 15.5 % (11.5-14.5); WBC 10.34 X1000 (4.8-10.8)
--- NOTE | 2018-07-11 13:44 | Diag Imaging Result Doc PS360 ---
EXAM: FLAT/UPRIGHT ABD/1 VIEW CHEST - 07/11/2018 HISTORY: abd TECHNIQUE: Supine and upright abdomen and one view chest COMPARISON: 03/18/2018 portable chest FINDINGS: There is mild distention of colon with gas and fecal debris. There is no substantial gaseous small bowel distention identified. There is no free air identified. There are surgical clips at the right groin area. Upright chest shows normal heart size. There is coronary artery stent or graft noted. The lungs appear clear. There is no pleural effusion or pneumothorax identified. IMPRESSION: Nonspecific mild distention of colon with gas and fecal debris. No evidence of acute cardiopulmonary disease. Electronically signed by Diego Harp 07/11/2018 1:41 PM
[2018-07-11 13:54] LABS: ALBUMIN 3.9 g/dL (3.5-5.0); CALCIUM 10.5 mg/dL (8.8-10.2); TOTAL BILIRUBIN 0.2 mg/dL (0.20-1.00); TOTAL PROTEIN 7.8 g/dL (6.3-8.3)
[2018-07-11] MEDS ORDERED: HUMALOG IV ONE (14:04)
[2018-07-11] MEDS ORDERED: CALCIUM CHLORIDE 1 GM in NS 100 ML IV ONE (14:04)
[2018-07-11] MEDS ORDERED: KAYEXALATE PO ONE (14:06)
[2018-07-11] MEDS ORDERED: HUMALOG (PARKWAY) ONE (14:13)
[2018-07-11] MEDS ORDERED: NS 1,000 ML IV SCH (14:30)
[2018-07-11 15:19] LABS: BILIRUBIN URINE NEGATIVE (NEGATIVE); BLOOD URINE NEGATIVE (NEGATIVE); CLARITY CLEAR (CLEAR); COLOR YELLOW; KETONE URINE NEGATIVE (NEGATIVE); LEUKOCYTES URINE 1+ (NEGATIVE); NITRITE URINE NEGATIVE (NEGATIVE); PROTEIN URINE TRACE mg/dL (NEGATIVE); SP GRAVITY URINE 1.015; UROBILINOGEN URINE NORMAL
[2018-07-11] MEDS ORDERED: TYLENOL PO PRN (15:36)
[2018-07-11] MEDS ORDERED: ZOFRAN IV PRN (15:36)
[2018-07-11 15:40] LABS: URINE BACTERIA 1+ /HFP; URINE EPITHELIAL CELLS <10 /HPF (<10); URINE RBC <10 /HPF (<10); URINE SMALL ROUND CELLS TRANSITIONAL PRESENT; URINE SOURCE CLEAN CATCH; URINE WBC <10 /HPF (<10); URINE YEAST PRESENT /HPF
[2018-07-11 16:24] LABS: UR CREAT RANDOM 104.6 mg/dL (11-20); UR PROT RANDOM 18.1 mg/dL
[2018-07-11] MEDS: NS 1,000 ML IV SCH (16:31)
[2018-07-11] MEDS: MYCOSTATIN SUSP PO SCH ×2 (16:31→20:21)
--- NOTE | 2018-07-11 16:45 | PROVIDER DOCUMENTATION ---
This chart was entered by Annette Resendiz Scribe, acting as scribe for Marybel Ross MD. HPI-General Adult - General Chief Complaint: Abdominal Pain Stated Complaint: DEHYDRATION Time Seen by Provider: 07/11/18 12:01 Source: patient Allergies/Adverse Reactions: Patient Allergies Allergy/AdvReac Type Severity Reaction Status Date / Time codeine Allergy Severe NAUSEA/VOMI Verified 03/10/18 15:48 TING metronidazole [From Flagyl] Allergy Severe ANAPHYLAXIS Verified 03/10/18 15:48 Metronidazole HCl * Allergy Severe ANAPHYLAXIS Verified 03/10/18 15:48 [From Flagyl] povidone-iodine Allergy Severe HIVES Verified 03/10/18 15:48 [From Betadine] soap * [From Betadine] Allergy Severe HIVES Verified 03/10/18 15:48 doxycycline Allergy Intermediate RASH Verified 03/10/18 15:48 morphine Allergy Mild NAUSEA/VOMI Verified 03/10/18 15:48 TING Beta-Blockers Allergy Unknown ITCHING Verified 03/10/18 15:48 (Beta-Adrenergic Bloc Calcium Channel Blocking Allergy Unknown SHORTNESS Verified 03/10/18 15:48 Agent Dilt OF BREATH [Calcium Channel Blocking Agents-David] Calcium Channel Blocking Allergy Unknown SHORTNESS Verified 03/10/18 15:48 Agent... * OF BREATH [Calcium Channel Blocking Agents-Phe] Calcium Channel Blocking Allergy Unknown SHORTNESS Verified 03/10/18 15:48 Agents-Dih OF BREATH Calcium Channel Allergy Unknown SHORTNESS Verified 03/10/18 15:48 Blocking-Diary... * OF BREATH [Calcium Channel Blocking-Diarylamin] nitrofurantoin Allergy RASH Verified 03/10/18 15:49 [From Macrobid] piperacillin [From Zosyn] Allergy ITCHING Verified 03/11/18 12:51 Sulfa (Sulfonamide Allergy NAUSEA/VOMI Verified 03/10/18 15:50 Antibiotics) TING sulfamethoxazole Allergy NAUSEA/VOMI Verified 03/10/18 15:51 [From Bactrim] TING tazobactam [From Zosyn] Allergy ITCHING Verified 03/11/18 12:51 trimethoprim [From Bactrim] Allergy NAUSEA/VOMI Verified 03/10/18 15:51 TING meropenem AdvReac Mild SHORTNESS Verified 03/11/18 20:14 OF BREATH Home Medications: Home Medication List Medication Instructions Recorded Confirmed Last Taken Type Diazepam 5 mg PO DAILY 04/08/13 03/11/18 Unknown History Furosemide [Lasix] 40 mg PO DAILY 04/08/13 03/11/18 03/10/18 11:30 History 40mg Ipratropium/Albuterol INH 1 puff INH RTQ6H 04/08/13 03/11/18 Unknown History [Combivent Respimat Inhaler] Isosorbide Mononitrate E.r. [Imdur] 90 mg PO DAILY 04/08/13 03/11/18 03/10/18 11:30 History 90mg Promethazine [Phenergan] 25 mg PO Q6H PRN PRN #14 tablet 04/08/13 03/11/18 Unknown Rx Alprazolam [Xanax] 0.25 mg PO QHS 03/10/18 03/11/18 03/09/18 History 0.25mg Diphenhydramine [Benadryl] 25 mg PO BID 03/10/18 03/11/18 03/10/18 11:30 History 25mg Duloxetine [Cymbalta] 30 mg PO DAILY 03/10/18 03/11/18 03/09/18 History 30mg Insulin Regular, Human [Novolin R] 25 unit SQ TID 03/10/18 03/17/18 Unknown History Lisinopril 10 mg PO DAILY 03/10/18 03/11/18 03/10/18 11:30 History 10mg Methocarbamol [Robaxin] 500 mg PO BID 03/10/18 03/11/18 03/10/18 11:30 History 500mg Metoprolol [Lopressor] 25 mg PO DAILY 03/10/18 03/11/18 03/09/18 History 25mg Nitroglycerin [Nitrostat] 0.4 mg SL PRN PRN 03/10/18 03/11/18 Unknown History Maria Stein-3 Fatty Acids [Fish Oil] 500 mg PO QHS 03/10/18 03/11/18 03/09/18 History 500mg Polyethylene Glycol 3350 [Miralax] 17 gm PO DAILY 03/10/18 03/11/18 03/09/18 History Verapamil HCl [Verapamil ER] 120 mg PO BID 03/10/18 03/11/18 03/09/18 History 120mg Nitroglycerin [Nitroglycerin Patch] 1 each TD DAILY 03/11/18 03/11/18 03/10/18 History NPH, Human Insulin Isophane 45 unit SQ BID 03/17/18 03/17/18 Unknown History [Novolin N] Esomeprazole [Nexium] 40 mg PO BID #60 cap 03/18/18 Unknown Rx - History of Present Illness -Gen Adult Nature of Presenting Problems: Patient is a 72 year old female who presents with loss of appetite and diarrhea. Patient states she is currently on Levaquin after being diagnosed with an UTI. Denies abdominal pain. Location of Pain/Injury: reports: none Pain Radiation: reports: no radiation Quality of Pain: reports: none Severity: reports: mild Onset/Duration: reports: gradual Timing: reports: still present Context/Activities at Onset: reports: light activity Associated Symptoms: reports: diarrhea, loss of appetite Similar Symptoms Previously?: Yes Recently seen or treated by another doctor?: Yes Review of Systems - Adult - REVIEW OF SYSTEMS - ADULT Constitutional: reports: no symptoms reported. denies: chills, fever, fatique Eyes: reports: no symptoms reported Ears, Nose, Mouth & Throat: reports: no symptoms reported Cardiovascular: reports: no symptoms reported Respiratory: reports: no symptoms reported Gastrointestinal: reports: see HPI, diarrhea, poor appetite. denies: abdominal pain, nausea, vomiting Genitourinary: reports: no symptoms reported Musculoskeletal: reports: no symptoms reported. denies: back pain, muscle aches, neck pain Integumentary: reports: no symptoms reported Neurological: reports: no symptoms reported Psychiatric: reports: no symptoms reported Endocrine: reports: no symptoms reported Hematologic/Lymphatic: reports: no symptoms reported Allergic/Immunologic: reports: no symptoms reported All Other Systems: Reviewed and Negative Past History - Adult - PAST MEDICAL HISTORY-ADULT Review of Records: reports: Old Records Reviewed, Nursing Assessment Review, Medications Reviewed Major Childhood Illnesses: reports: denies history Cardiovascular: reports: angina, CAD, HTN Respiratory: reports: asthma, sleep apnea Gastrointestinal: reports: denies history Obstetrical/Gynecological: reports: denies history Genitourinary: reports: kidney disease Musculoskeletal: reports: denies history Neurological: reports: CVA (01/06), other ([place]) Endocrine/Immune: reports: Diabetes Other Conditions: reports: cataract/glaucoma, other (meneres dz) - PRIOR SURGERIES/PROCEDURES Surgical/Procedure History: reports: appendectomy, cholecystectomy, bowel surgery, other (renal stent, cataract removal) - IMMUNIZATION STATUS Childhood Immunizations: See Nurse Assessment Flu Vaccine: See Nurse Assessment - FAMILY HISTORY Family History: reviewed, not pertinent - SOCIAL HISTORY Smoking: cigarettes (former) Substance Use: denies Physical Exam-General - PHYSICAL EXAM-ADULT Initial Vital Signs Reviewed: Yes - CONSTITUTIONAL General Appearance: alert, no apparent distress. negative: lethargic, slow to respond - EYES Eyes: negative: conjuctival exudate - HEAD, EARS, NOSE, MOUTH & THROAT HENMT: normocephalic/atraumatic. negative: angioedema - RESPIRATORY Respiratory: chest non-tender, lungs clear, normal breath sounds. negative: crackles, wheezing - CARDIOVASCULAR Cardiovascular: normal peripheral pulses, regular rate, rhythm. negative: tachycardia, systolic murmur - GASTROINTESTINAL (ABDOMEN) Abdominal Exam: normal bowel sounds, non tender, soft. negative: guarding, rebound - MUSCULOSKELETAL Extremity: non-tender. negative: deformity, erythema - SKIN Integumentary: normal color, normal turgor, warm/dry. negative: cyanosis, ecchymosis, erythema, jaundice - NEUROLOGIC Neurologic: other (generalized weakness, no acute neurodeficits). negative: aphasia, facial droop - PSYCHIATRIC Psych/Mental Status: normal mood/affect, oriented x 3. negative: anxious Progress - PLAN OF CARE/RESULTS Progress/Plan/Lab Results: Vital Signs - 8 hr 07/11/18 12:00 Temperature 97.7 F Pulse Rate 82 Respiratory Rate 16 Blood Pressure 105/59 O2 Sat by Pulse Oximetry 99 Orders Category Date Time Status Saline Loc NOW Care 07/11/18 12:24 Active FLAT/UPRIGHT ABD/1 VIEW CHEST [RAD] Stat Exams 07/11/18 12:24 Ordered CBC WITH DIFF [HEME] Stat Lab 07/11/18 12:24 Ordered COMPREHENSIVE METABOLIC PANEL [CHEM] Stat Lab 07/11/18 12:24 Ordered PRO B-NATRIURETIC PEPTIDE Stat Lab 07/11/18 12:24 Ordered TROPONIN T Stat Lab 07/11/18 12:[address] W/POSS RFLX CULT [URINALYSIS] Stat Lab 07/11/18 12:24 Uncollected Result Diagrams: 07/11/18 13:00 07/11/18 13:00 - XRAY 1 XRAY Study: Chest, Abdomen Impression: See EMR Report ( EXAM: FLAT/UPRIGHT ABD/1 VIEW CHEST - 07/11/2018 HISTORY: abd TECHNIQUE: Supine and upright abdomen and one view chest COMPARISON: 03/18/2018 portable chest FINDINGS: There is mild distention of colon with gas and fecal debris. There is no substantial gaseous small bowel distention identified. There is no free air identified. There are surgical clips at the right groin area. Upright chest shows normal heart size. There is c oronary artery stent or graft noted. The lungs appear clear. There is no pleural effusion or pneumothorax identified. IMPRESSION: Nonspecific mild distention of colon with gas and fecal debris. No evidence of acute cardiopulmonary disease. Electronically signed by Diego Harp 07/11/2018 1:41 PM 07/11/18 1341 Interpreting Physician: Diego Harp MD Dictated Date/Time: 07/11/18 2706 cc: Marybel Ross MD; Ravin Christianson MD) - CONSULTS/PCP/HOSPITALIST Notification #1 *Consult/PCP/Hospitalist*: Dr. Allen Time Discussed: 14:21 Reason/Comments: Dr. Ross consulted with Dr. Allen about patient. Consult Disposition: Admit Departure - Departure Date of Disposition Decision: 07/11/18 Time of Disposition Decision: 14:25 DIAGNOSIS: Hyperkalemia Disposition: ADMITTED INPATIENT 09 Certified Medical Emergency: Emergent Condition: Serious - Critical Care Note This patient required my direct & personal management of CC.: Yes Total Time (mins): 31 Critical Care Statement: This patient required my direct personal management to treat or rule out processes, the absence of which, could potentiallly result in sudden, clinically significant life or limb threatening deterioration. Attestation - Physician/ KATHRYN Attestation The physician spent face to face time with patient:: Yes Advanced Practice Provider documentation review:: Supervising physician onsite and consulted in the evaluation and care of this patient. The physician did have a face to face encounter with the patient. This chart was documented by the indicated scribe, (Annette Resendiz Scribe) and accurately reflects the services I performed and decisions made by me, Marybel Ross MD, as attested by the provider's signature.
[2018-07-11] MEDS ORDERED: NEXIUM PO PRN (17:35)
[2018-07-11] MEDS ORDERED: VALIUM PO PRN (17:35)
[2018-07-11] MEDS ORDERED: MIRALAX PO PRN (17:35)
[2018-07-11] MEDS ORDERED: NITROGLYCERIN SL PRN (17:35)
[2018-07-11] MEDS ORDERED: COMBIVENT RESPIMAT INHALER INH PRN (17:35)
[2018-07-11] MEDS ORDERED: DUONEB (A & A) INH PRN (17:46)
[2018-07-11 19:27] LABS: CALCIUM 10.5 mg/dL (8.8-10.2); CREATININE 2.5 mg/dL (0.5-0.9); POTASSIUM 4.6 mmol/L (3.5-5.1)
--- NOTE | 2018-07-11 20:11 | HISTORY AND PHYSICAL ---
PRIMARY CARE PHYSICIAN: Dr. Christianson. CHIEF COMPLAINT: Diarrhea and decreased appetite after being treated for a UTI with Levaquin. Stopped Levaquin this past Sunday. HISTORY OF PRESENTING ILLNESS: This is a 72-year-old female who presents to [facility] ER with daughter, stating that her mom had been treated for a UTI and had been placed on Levaquin, started having some diarrhea, so they stopped the Levaquin on Sunday. She continued to have diarrhea and has had a decreased appetite since that time. When she arrived to the emergency room, she was noted to have a sodium of 131, potassium of 6, chloride was 90, BUN of 49, creatinine of 3. She has some chronic kidney disease with a baseline around 1.5 to 1.9, so this is certainly a little more increased than it was previously. Her abdomen x- ray showed a nonspecific mild distention of colon with gas and fecal debris, and no evidence of acute cardiopulmonary disease. She will be admitted to our intensive care unit for further evaluation and treatment. PAST MEDICAL HISTORY: CAD, status post PCI, sleep apnea, asthma, diabetes type 2, a right humeral fracture, hypertension, chronic kidney disease, and a CVA and Meniere's. PAST SURGICAL HISTORY: Cholecystectomy, appendectomy, a bowel surgery, and cataracts. FAMILY HISTORY: Coronary artery disease. SOCIAL HISTORY: She currently lives with family. Denies any tobacco, alcohol, or illicit drug use. ALLERGIES: Codeine, Flagyl, Betadine, doxycycline, morphine, beta blockers, calcium channel blockers, piperacillin, sulfa, tazobactam, Bactrim, meropenem. HOME MEDICATIONS: A current list will need to be obtained, reconciled, reviewed, and restarted as appropriate. We will place an order for Nursing to update and confirm home medications. LABORATORY DATA: Showed a white blood cell count of 10.34, hemoglobin 12, hematocrit 35.6, platelets 348,000. Sodium 131, potassium 6, chloride 90, CO2 24, BUN of 49, creatinine 3, glucose 282. Troponin was negative. ProBNP of 436. An abdomen x-ray showed a nonspecific mild distention of colon with gas and fecal debris. No evidence of acute cardiopulmonary disease. REVIEW OF SYSTEMS: Denies any fever, chills, blurred vision, dizziness, chest pain, coughing, shortness of breath. Denies any abdominal pain. She has had diarrhea and a decreased appetite. No nausea or vomiting, and no burning or hurting with urination. PHYSICAL EXAMINATION: VITAL SIGNS: On arrival, she had a temperature of 97.7 degrees, pulse 82, respirations 16, blood pressure 105/59, saturating 99% on room air. GENERAL: This is a 72-year-old female sitting up in the bed. HEENT: Normocephalic, atraumatic. Her mouth is noted to have some white patches. States she is in the process of being treated for thrush, and we will continue that treatment with nystatin, but otherwise normal inspection. Eyes: Pupils are equal, round, reactive to light and accommodation. Extraocular movements are intact. NECK: Normal inspection. Normal range of motion. LUNGS: Clear to auscultation bilaterally with equal lung expansion and chest wall movement. HEART: Regular rate and rhythm. No murmurs, rubs, or gallops. ABDOMEN: Soft, nontender, and nondistended. Bowel sounds are present x4 quadrants. MUSCULOSKELETAL: Able to move extremities well, but there is weakness from residuals of her CVA. NEUROLOGICAL: Cranial nerves 2 through 12 appear grossly intact. ASSESSMENT: 1. Hyponatremia. 2. Hyperkalemia. 3. An acute on chronic kidney disease. 4. Mild hypercalcemia. 5. Diabetes type 2. 6. Coronary artery disease, aware. 7. Oral thrush. PLAN: 1. She will be admitted to the intensive care unit, placed on telemetry. 2. We are going to get a renal ultrasound. 3. Check her thyroid, TSH level. 4. We will do a urine creatinine, urine protein, urine sodium. 5. Check urinalysis. 6. In the emergency room, she received calcium chloride 1 gram IV x1, 4 units of Humalog IV x1, Kayexalate 15 g p.o. x1. 7. We will treat oral thrush with nystatin 5 mL p.o. [address] on normal saline at 125 mL an hour. 9. Recheck a CBC, BMP in the a.m. 10. We need to verify her home medications. It appears that she may be on Lasix and lisinopril, and if that is the case, of course we would hold those until her kidney function improves, but again we need to verify and review those medications first. 11. Further orders after seen by Attending. Dictated by NONI Gandhi for Guevara Allen MD cc: NONI Gandhi MD Dr. Francis
[2018-07-11] MEDS: BENADRYL PO SCH (20:21)
[2018-07-11] MEDS: ISOPTIN SR PO SCH (20:21)
[2018-07-11] MEDS ORDERED: IMDUR PO SCH (21:00)
[2018-07-11] MEDS ORDERED: FISH OIL CONCENTRATE PO SCH (21:00)
[2018-07-12] MEDS: NS 1,000 ML IV SCH ×2 (00:10→08:35)
--- NOTE | 2018-07-12 00:39 | PROGRESS NOTE ---
DATE: 07/11/2018 She is a patient who came in for diarrhea and multiple other issues. She has some chronic renal failure. The daughter manages her care very well, but she is very, very monopolizing of what is to be done with her mother at a very intimate level in the sense of just very detail oriented about what is appropriate and not appropriate, what is the correct diagnosis and not the correct diagnosis. She is very adamant that she has thrush. On exam, I do not appreciate any thrush but, per the daughter, because she has a red swollen tongue and she has had thrush described this way previously that this is thrush and she needs nystatin in order to help her eat because she has not been eating very well the last couple of days. She was diagnosed and was given Levaquin. She had diarrhea, but then a gastroenteritis episode occurred during the family and not clear if this was related to the antibiotic. The patient is stable. She had diarrhea. Now her BUN and creatinine have climbed to 49 and 3. Per the daughter, the creatinine has been as high as 4.8. All we have documented in 2013 is 3.5, which is higher than today. Her potassium was also 6. On exam, she maybe a little bit dry but not euvolemic. She does have evidence of renal failure, and sodium is low. We will continue IV fluids, and we will follow closely. We will continue to monitor, and we will need to be very careful because the daughter is very concerned about multiple issues and sometimes at the risk of her, I would not say benefit, but if she does not agree with the care to her level of understanding, she therefore is uncertain about its effects. In any case, I will continue nystatin because she feels that will help her mother. I do not think that is inappropriate. I did want to start some oral medication for mucositis, but she did not agree with that because she feels the patient has a strong allergy to lidocaine. That is not listed in her allergies, but I certainly would not want to disrupt anything at this point, and we will encourage her to eat. I will check stool studies just to evaluate for any other issues. We will have to avoid nephrotoxic medications, and we will continue to follow. cc: Guevara Allen MD
[2018-07-12 07:16] LABS: BASO# 0.01 X1000 (0.0-0.2); BASO% 0.1 % (0.0-0.8); EOS# 0.25 X1000 (0.0-0.7); EOS% 3.3 % (0.0-10.0); HEMATOCRIT 33.5 % (37.0-47.0); HEMOGLOBIN 11.2 g/dL (12.0-16.0); IMM GRAN# 0.03 X1000 (0.0-0.04); IMM GRAN% 0.4 % (0.0-0.5); LYMPH% 29.1 % (20.5-51.1); MCH 28.1 PG (27-31); MCHC 33.4 g/dL (33-37); MONO# 0.71 X1000 (0.11-0.59); MONO% 9.4 % (1.7-9.3); MPV 8.9 FL (7.4-10.4); NEUT# 4.36 X1000 (1.4-6.5); NEUT% 57.7 % (42.2-75.2); PLT 333 X1000 (130-400); RBC 3.99 XMIL (4.2-5.4); RDW 15.1 % (11.5-14.5); WBC 7.56 X1000 (4.8-10.8)
[2018-07-12 07:39] LABS: CALCIUM 9.9 mg/dL (8.8-10.2); POTASSIUM 4.6 mmol/L (3.5-5.1)
[2018-07-12] MEDS: BENADRYL PO SCH (08:31)
[2018-07-12] MEDS: MYCOSTATIN SUSP PO SCH (08:31)
[2018-07-12] MEDS: ISOPTIN SR PO SCH (08:32)
[2018-07-12] MEDS ORDERED: LOPRESSOR PO SCH (09:00)
[2018-07-12] MEDS ORDERED: CYMBALTA PO SCH (09:00)
[2018-07-12] MEDS ORDERED: HUMULIN N INSULIN (PARKWAY) SUBQ SCH (09:00)
[2018-07-12] MEDS ORDERED: NITROGLYCERIN 0.1MG/HR PATCH TD SCH (09:00)
[2018-07-12 09:25] VITALS: BP 132/65
[2018-07-12] MEDS ORDERED: NS 1,000 ML IV SCH (09:42)
[2018-07-12] MEDS ORDERED: NITROGLYCERIN 0.4 MG/HR PATCH TD SCH (09:45)
[2018-07-12] MEDS ORDERED: NEXIUM PO SCH ×2 (09:45→21:00)
--- NOTE | 2018-07-12 10:05 | Diag Imaging Result Doc PS360 ---
US RENAL 2 (RETROPER) COMPLETE - 07/12/2018 INDICATION: angel/arf TECHNIQUE: COMPARISON: 03/14/2018 FINDINGS: There is a small right renal cyst measuring 15 x 13 mm. Otherwise the kidneys are normal. No hydronephrosis or mass. The right kidney measures 9.8 x 5 x 4.7 cm. The left kidney measures 9.5 x 5 x 4.5 cm. Urinary bladder is normal. IMPRESSION: Small right renal cyst. No acute disease. Electronically signed by En Fitzgerald 07/12/2018 10:02 AM
[2018-07-12] MEDS ORDERED: HUMULIN R (PARKWAY) SUBQ SCH (11:00)
--- NOTE | 2018-07-12 11:07 | EKG Report ---
Test Performed on : 07/11/2018 12:32:19 PM Test Reason : ER Blood Pressure : / mmHG Vent. Rate : 082 BPM Atrial Rate : 082 BPM P-R Int : 176 ms QRS Dur : 088 ms QT Int : 378 ms P-R-T Axes : 024 -01 066 degrees QTc Int : 441 ms Normal sinus rhythm. Low voltage QRS Inferior infarct , age undetermined Cannot rule out Anterior infarct , age undetermined Abnormal ECG When compared with ECG of 16-MAR-2018 11:51, Minimal criteria for Anterior infarct are now present Inferior infarct is now present Nonspecific T wave abnormality no longer evident in Anterior leads QT has shortened Unconfirmed Result
--- NOTE | 2018-07-13 11:50 | DISCHARGE SUMMARY ---
ADMISSION DATE: 07/11/2018 DISCHARGE DATE: 07/12/2018 DISCHARGE DIAGNOSES: 1. Acute kidney injury in the setting of chronic renal failure stage 3. 2. Hyperkalemia. 3. Brief gastritis, enteritis, probably either food poisoning or possibly antibiotic related, although no stool sample was able to be obtained to test for Clostridium difficile but I thought it was very unlikely. CONSULTATIONS: None PROCEDURES: None. HOSPITAL COURSE: Briefly this is a 72-year-old female with CAD and stroke and diabetes. She came in. She had been recently treated for UTI with Levaquin which I think she was on her last day of antibiotics when she came in. She developed diarrhea. She was not eating. Her daughter who is her primary caregiver was concerned about thrush. She was started on nystatin, but she still could not eat or drink, so she came in for evaluation. She was found to be in renal failure with a creatinine of 3. Her potassium was 6. She was having difficulty eating and drinking. Rest of her workup was negative. She was placed on IV fluids and she clinically improved. Next day, her creatinine is down to 2. Her baseline looking at data is anywhere between 1.3 to 2. Her discharge creatinine last time was 1.9 so she hovers around to again 1.3 to 2. Her BUN was down to 39. Renal ultrasound showed small right renal cyst. Her urine electrolytes were more consistent with prerenal. Her urine sodium was 28, creatinine 104. She did not have evidence of UTI this time but on the she did have a UA that look like but no culture was obtained then and her culture from this after 4 days of Levaquin is negative in any case she will be discharged home. Her daughter cares for her very aggressively and she has home health. All things were explained to the daughter. I offered to consider staying 1 more day for fluids, but as she is at baseline and daughter is very attentive caregiver and home health is involved and she has follow up next week with her automotive specialty technician on Sunday, I think he is safe for discharge. DISCHARGE MEDICATIONS: 1. Atrovent q.6 2. Benadryl 25 b.i.d. 3. Fish oil 500 daily. 4. Cymbalta 20 daily. 5. Diazepam 5 b.i.d. 6. Imdur 90. 7. Lasix 40 which she was told to resume tomorrow the . 8. Lisinopril 10, also resume tomorrow. I did advise the daughter to discuss with cardiology about her BAKARI inhibitor because she is she has had issues with renal failure and hyperkalemia before. Again daughter is very strict about what has been told to her and what works and what does not. She has dealt with her mother for many years. Again, I do have a concern about that if there is any way to substitute or change her to possibly hydralazine with the nitrate. 9. Lopressor 25. 10. MiraLAX 17. 11. Nexium 40 b.i.d. 12. Nitroglycerin patch 0.4. 13. Novolin NPH 45 daily, R 25 t.i.d. 14. Verapamil ER 120 b.i.d. 15. Vitamin D3 1000 units daily. 16. Vitamin K 500 mcg daily. 17. Phenergan as needed. DISCHARGE CONDITION: Stable. I would recommend full face repeat basic in 1 week. TIME SPENT: 32 minutes discharge. cc: MD Ravin Tan MD Dr.Sibley
== END 2018-07-12 11:35 | disposition home health service (06) | DRG 641 ==
LOC: P.ED 11:51 → P.ICU 14:51
PROVIDERS: ATTEND Internal Medicine
CPT/HCPCS: 74022; 76770; 80048; 80053; 81001; 82570; 83880; 84156; 84300; 84443; 84484; 85025; 87088; 93005; 96365; 99285; A9270; J1815; J7030; J7040